=== PATIENT | male | born 1940 | race Caucasian/White ===

== ENCOUNTER 2019-06-18 07:34 | Inpatient (IN) | payer OTHER ==
--- NOTE | 2019-06-18 08:34 | PDOC ---
History of Present Illness - General Chief Complaint: Ingrown toenail Stated Complaint: TOE PAIN Time Seen by Provider: 06/18/19 08:10 History Source: Patient Exam Limitations: No Limitations Past History - Travel Traveled outside of the country in the last 30 days: No Close contact w/someone who was outside of country & ill: No - Past Medical History Allergies/Adverse Reactions: Allergies Allergy/AdvReac Type Severity Reaction Status Date / Time ciprofloxacin [From Cipro] Allergy Mild Vomiting Verified 06/18/19 08:17 ciprofloxacin HCl Allergy Mild Vomiting Verified 06/18/19 08:17 [From Cipro] Home Medications: Ambulatory Orders Aspirin [ASA -] 81 mg PO DAILY #0 tab.chew 06/02/13 Atorvastatin Calcium 20 mg PO DAILY 06/18/19 Cephalexin [Keflex] 500 mg PO TID 06/18/19 Lisinopril 10 mg PO DAILY 06/18/19 Anemia: No Asthma: No Cancer: No Cardiac Disorders: No CVA: No COPD: No CHF: No Dementia: No Diabetes: No GI Disorders: No Disorders: No HTN: Yes Hypercholesterolemia: Yes Liver Disease: No Seizures: No Thyroid Disease: No - Surgical History Abdominal Surgery: No Appendectomy: No Cardiac Surgery: Yes (CORONARY BYPASS) Cholecystectomy: No Lung Surgery: No Neurologic Surgery: No Orthopedic Surgery: No - Psycho Social/Smoking Cessation Hx Smoking Status: Yes Smoking History: Never smoked Have you smoked in the past 12 months: No Number of Cigarettes Smoked Daily: 7 'Breaking Loose' booklet given: 07/09/12 Hx Alcohol Use: Yes (WINE ON OCCASSION) Drug/Substance Use Hx: No Substance Use Type: Alcohol Hx Substance Use Treatment: No Review of Systems - Review of Systems Able to Perform ROS?: Yes Comments:: 06/18/19 08:34 CONSTITUTIONAL: Absent: fever, chills, diaphoresis, generalized weakness, malaise, loss of appetite HEENT: Absent: rhinorrhea, nasal congestion, throat pain, throat swelling, difficulty swallowing, mouth swelling, ear pain, eye pain, visual Changes CARDIOVASCULAR: Absent: chest pain, loss of consciousness, palpitations, irregular heart rate, peripheral edema RESPIRATORY: Absent: cough, shortness of breath, dyspnea with exertion, orthopnea, wheezing, stridor, hemoptysis GASTROINTESTINAL: Absent: abdominal pain, abdominal distension, nausea, vomiting, diarrhea, constipation, melena, hematochezia GENITOURINARY: Absent: dysuria, frequency, urgency, hesitancy, hematuria, flank pain, genital pain MUSCULOSKELETAL: Absent: myalgia, arthralgia, joint swelling SKIN: Present: L second toe infection Absent: rash, itching, pallor HEMATOLOGIC/IMMUNOLOGIC: Absent: easy bleeding, easy bruising, lymphadenopathy, frequent infections ENDOCRINE: Absent: unexplained weight gain, unexplained weight loss, heat intolerance, cold intolerance NEUROLOGIC: Absent: headache, focal weakness or paresthesias, dizziness, unsteady gait, seizure, mental status changes, bladder or bowel incontinence PSYCHIATRIC: Absent: anxiety, depression, suicidal or homicidal ideation, hallucinations. Is the patient limited Czech proficient: No *Physical Exam - Vital Signs Last Vital Signs Temp Pulse Resp BP Pulse Ox 71 18 163/92 99 06/18/19 07:37 06/18/19 07:37 06/18/19 07:37 06/18/19 07:37 - Physical Exam Comments: 06/18/19 08:35 GENERAL: Well developed, well nourished. Awake and alert. No acute distress. HEENT: Normocephalic, atraumatic. PERRLA, EOMI. No conjunctival pallor. Sclera are non- icteric. Moist mucous membranes. Oropharynx is clear. NECK: Supple. Full ROM. No JVD. Carotid pulses 2+ and symmetric, without bruits. No thyromegaly. No lymphadenopathy. CARDIOVASCULAR: Regular rate and rhythm. No murmurs, rubs, or gallops. Distal pulses are 2+ and symmetric. PULMONARY: No evidence of respiratory distress. Lungs clear to auscultation bilaterally. No wheezing, rales or rhonchi. ABDOMINAL: Soft. Non-tender. Non-distended. No rebound or guarding. No organomegaly. Normoactive bowel sounds. MUSCULOSKELETAL Normal range of motion at all joints. No bony deformities or tenderness. No CVA tenderness. EXTREMITIES: L second toe is warm and erythematous with streaking up the L foot. Purulent drainage noted between the 2nd and 3rd toe associated with a pressure ulcer. No cyanosis. No clubbing. No edema. No calf tenderness. SKIN: onychomycosis noted to all of the toenails on the left foot. Fungal discharge noted between toes. Warm and dry. Normal capillary refill. No rashes. No jaundice. NEUROLOGICAL: Alert, awake, appropriate. Cranial nerves 2-12 intact. No deficits to light touch and temperature in face, upper extremities and lower extremities. No motor deficits in the in face, upper extremities and lower extremities. Normoreflexic in the upper and lower extremities. Normal speech. Toes are down- going bilaterally. Gait is normal without ataxia. PSYCHIATRIC: Cooperative. Good eye contact. Appropriate mood and affect. Medical Decision Making - Medical Decision Making 06/18/19 08:45 the patient is a 78-year-old male with past medical history of hypertension, hyperlipidemia, presents to the ER today for a toe infection to the left second toe. He states that the infection most likely started 2 weeks ago after getting his nails trimmed. He states that the left second toenail got trimmed to far and it started to bleed. One week ago he went to [facility] and he was diagnosed with a cellulitis of the toe. He was placed on Keflex. He states since then the toe has gotten worse and he notices the top of the foot is red. Denies fevers, chills, difficulty breathing, shortness of breath, nausea, vomiting, diarrhea and urinary symptoms. Patient is an every day smoker. A/P: Left second toe infection On exam the left second toe is erythematous with purulent drainage and a pressure ulcer noted between the second and third toe on the left. There is streaking of erythema up the left foot. Labs, Cultures ordered. IV Vancomycin and zosyn ordered Patient fails outpatient antibiotics; will need admission for wound care and IV antibiotics. Patient upgraded to the main ER. CHARAN Nixon and charge nurse Parker made aware Discharge - Discharge Information Problems reviewed: Yes Clinical Impression/Diagnosis: Onychomycosis, Toe infection Cellulitis Qualifiers: Site of cellulitis: extremity Site of cellulitis of extremity: lower extremity Laterality: left Qualified Code(s): L03.116 - Cellulitis of left lower limb Condition: Stable - Follow up/Referral Referrals: Bird Phillip [Primary Care Provider] - - Patient Discharge Instructions - Post Discharge Activity
[2019-06-18] MEDS ORDERED: VANCOMYCIN 1,000 MG in DEXTROSE 5%-WATER - 250 ML IVPB ONE (08:37)
[2019-06-18] MEDS ORDERED: PIPERACILLIN/TAZOB 3.375 GM 3.375 GM in DEXTROSE 5%-WATER - 50 ML IVPB ONE (08:37)
[2019-06-18] MEDS ORDERED: PIPERACILLIN/TAZOB 3.375 GM 3.375 GM/50 ML BAG IVPB ONE (08:44)
--- NOTE | 2019-06-18 08:53 | PDOC ---
*Physical Exam - Vital Signs Last Vital Signs Temp Pulse Resp BP Pulse Ox 97.7 F 71 18 163/92 99 06/18/19 08:37 06/18/19 07:37 06/18/19 07:37 06/18/19 07:37 06/18/19 07:37 - Physical Exam General Appearance: Yes: Nourished, Appropriately Dressed. No: Apparent Distress HEENT: negative: Normal ENT Inspection Neck: positive: Supple Respiratory/Chest: positive: Lungs Clear, Normal Breath Sounds. negative: Chest Tender, Respiratory Distress, Accessory Muscle Use Cardiovascular: positive: Regular Rhythm, Regular Rate Gastrointestinal/Abdominal: positive: Normal Bowel Sounds, Flat. negative: Tender Musculoskeletal: positive: Normal Inspection Extremity: positive: Normal Capillary Refill, Normal Range of Motion, Erythema ( left whole toes with steaking up lateral side of left foot), Other (yellow discolorations of toenails of left foot). negative: Tender Integumentary: positive: Warm, Erythema (left 1st-5th toes erythema) Neurologic: positive: Fully Oriented, Alert, Normal Response, Motor Strength 5/5 ED Treatment Course - LABORATORY CBC & Chemistry Diagram: 06/18/19 08:58 06/18/19 08:39 Medical Decision Making - Medical Decision Making 06/18/19 08:53 I assumes care of this 78yo M with h/o HTN and ingrown toenail to 1st and 2nd left toes complicated by infected toes and on a week course of Keflex Abx with worsening symptoms. Patient being follow-up by podiatry for 2 weeks now who has been treated patient with outpatient PO abx but patient present today due to redness getting worse instead of getting better with redness spreading to all toes with skin discoloration and discoloration of toenails.. Denies fever, chills, weakness. Denies h/o diabetes. Patient had sepsis work-up done in [facility] and transferred for IV Abx. CBC, CMP labs wnl. blood CX and wound Cx sent. Pt started on Iv Abx on Vanco and Zosyn. micoblog sent to medicine for admission. 06/18/19 10:57 Patient seen by medicine team and admitted for IV Abx. admission EKG done Discharge - Discharge Information Problems reviewed: Yes Clinical Impression/Diagnosis: Onychomycosis, Toe infection Cellulitis Qualifiers: Site of cellulitis: extremity Site of cellulitis of extremity: lower extremity Laterality: left Qualified Code(s): L03.116 - Cellulitis of left lower limb Condition: Stable - Admission Yes - Follow up/Referral - Patient Discharge Instructions - Post Discharge Activity
[2019-06-18 09:10] LABS: EOS % 1.5 % (0-4.5); HEMOGLOBIN 16.3 GM/dL (11.7-16.9); LYMPH % 18.2 % (8-40); MCH 32.4 pg (25.7-33.7); MCHC 34.6 g/dl (32.0-35.9); MEAN CELL VOLUME 93.8 fl (80-96); MEAN PLT VOLUME 8.8 fl (7.5-11.1); MONO % 8.6 % (3.8-10.2); NEUT % 70.7 % (42.8-82.8); PLATELET COUNT 168 K/MM3 (134-434); RBC 5.01 M/mm3 (4.00-5.60); RDW 14.3 % (11.9-15.9); WHITE BLOOD COUNT 5.5 K/mm3 (4.0-10.0)
[2019-06-18 09:23] LABS: INR 1.04 (0.83-1.09); PROTHROMBIN TIME (PATIENT) 12.3 SEC (9.7-13.0)
[2019-06-18] MEDS ORDERED: VANCOMYCIN 1 GRAM (PRE-DOCKED) 0 MG/0 ML BAG IVPB ONE (09:25)
[2019-06-18 09:28] LABS: PH,URINE 5.5 (5.0-8.0); URINE APPEARANCE CLEAR; URINE BILIRUBIN NEGATIVE (NEGATIVE); URINE COLOR YELLOW; URINE GLUCOSE (UA) NEGATIVE (NEGATIVE); URINE KETONE NEGATIVE (NEGATIVE); URINE LEUK ESTERASE NEGATIVE (NEGATIVE); URINE NITRITE NEGATIVE (NEGATIVE); URINE PROTEIN NEGATIVE (NEGATIVE); URINE UROBILINOGEN 0.2 mg/dL (0.2-1.0)
[2019-06-18] MEDS ORDERED: VANCOMYCIN 1 GRAM (PRE-DOCKED) 1,000 MG/250 ML BAG IVPB ONE (09:29)
[2019-06-18 09:36] LABS: BILIRUBIN,TOTAL 0.6 mg/dL (0.2-1); BLOOD UREA NITROGEN 22.7 mg/dL (7-18); CALCIUM 8.9 mg/dL (8.5-10.1); CREATININE 0.9 mg/dL (0.55-1.3); POTASSIUM 4.6 mmol/L (3.5-5.1); TOT PROT 7.4 g/dl (6.4-8.2)
[2019-06-18] MEDS ORDERED: VANCOMYCIN 1 GRAM (PRE-DOCKED) 1,000 MG/250 ML BAG IVPB SCH ×2 (11:30→22:00)
--- NOTE | 2019-06-18 11:42 | HP ---
CHIEF COMPLAINT: LLE toe pain PCP: Dr. Bowers HISTORY OF PRESENT ILLNESS: Pt. is a 78 y.o. M w/ PMHx. of PVD( s/p multiple ballooplasties in b/l popliteal artery and iliac arteries), HTN, Prostate Ca(s/ p radiation treatment), COPD?, HLD, Axillary Abcess (MRSA) and OM (MRSA) presenting after failed outpatient management of left second and third toe cellulitis. Pt. saw his Syrup Blender (Dr. Wolfe) 2 weeks ago to have his nails clipped and states that it was clipped too low. Pt. went to [facility] urgent care 1 week later because of ongoing toe pain and was prescribed Kefflex 500mg TID. Pt. states that the symptoms initally stared to resolve but that on Wednesday the symptoms of pain and redness returned and started to creep back up his toes and to the neighboring toes. Pt. denies ever having fever or chills throughout the entire series of events. Pt. denies any numbness or tingling in his extremities. Pt. denies any worsening weakness in his extremities but does endorse that he walks with a limp for many years now. Pt. denies any chest pain , shortness of breath, or changes in bowel or urinary habits. ER course was notable for: (1)Foot X-Ray, CBC, CMP, EKG (2)BCx., UCx., WCx. (3) Vancomycin and Zosyn Recent Travel: No PAST MEDICAL HISTORY: As Above PAST SURGICAL HISTORY: All surgeries done at [facility] except L. Fem-Pop Bypass. As above AND vein stripping. Social History: Smokin/2 PPD Alcohol: 1 glass of wine with dinner, except when taking Abx. Drugs: Denies Allergies ciprofloxacin [From Cipro] Allergy (Mild, Verified 06/18/19 08:17) Vomiting ciprofloxacin HCl [From Cipro] Allergy (Mild, Verified 06/18/19 08:17) Vomiting HOME MEDICATIONS: Home Medications Medication Instructions Recorded Aspirin [ASA -] 81 mg PO DAILY #0 tab.chew 06/02/13 Atorvastatin Calcium 20 mg PO DAILY 06/18/19 Cephalexin [Keflex] 500 mg PO TID 06/18/19 Lisinopril 10 mg PO DAILY 06/18/19 REVIEW OF SYSTEMS As Above PHYSICAL EXAMINATION Vital Signs - 24 hr 06/18/19 06/18/19 06/18/19 07:37 08:37 09:18 Temperature 97.7 F Pulse Rate 71 Pulse Rate [ Apical] Respiratory 18 Rate Blood Pressure 163/92 Blood Pressure [Left Arm] O2 Sat by Pulse 99 95 Oximetry (%) 06/18/19 10:55 Temperature 97.3 F L Pulse Rate Pulse Rate [ 64 Apical] Respiratory 16 Rate Blood Pressure Blood Pressure 175/74 H [Left Arm] O2 Sat by Pulse 97 Oximetry (%) GENERAL: Awake, alert, and fully oriented, in no acute distress. HEAD: Normal with no signs of trauma. EYES: extraocular movements intact, sclera anicteric, conjunctiva clear. EARS, NOSE, THROAT: Ears normal, nares patent, oropharynx clear without exudates. Moist mucous membranes. NECK: Normal range of motion, supple without lymphadenopathy, or JVD LUNGS: Breath sounds equal, clear to auscultation bilaterally. No wheezes, and no crackles. No accessory muscle use. HEART: Regular rate and rhythm, normal S1 and S2 without murmur ABDOMEN: Soft, nontender, not distended, normoactive bowel sounds, no guarding, no rebound, no masses. MUSCULOSKELETAL: Normal range of motion at all joints. Left second toe partial amputation UPPER EXTREMITIES: 2+ pulses, warm, well-perfused. No cyanosis. No clubbing. No peripheral edema. LOWER EXTREMITIES: 1+ pulses, warm, well-perfused. No calf tenderness. No peripheral edema. Left second and third toe creeping erythema. Fissure in the left second toe. Bunions present on b/l toes most prominent on b/l halluces NEUROLOGICAL: Cranial nerves II-XII grossly intact. Normal speech. Gait not assessed. PSYCHIATRIC: Cooperative. Good eye contact. Appropriate mood and affect. SKIN: Warm, dry, normal turgor Laboratory Results - last 24 hr 06/18/19 06/18/19 06/18/19 08:39 08:58 08:58 WBC 5.5 RBC 5.01 Hgb 16.3 Hct 47.0 D MCV 93.8 MCH 32.4 MCHC 34.6 RDW 14.3 Plt Count 168 D MPV 8.8 Absolute Neuts (auto) 3.9 Neutrophils % 70.7 Lymphocytes % 18.2 D Monocytes % 8.6 Eosinophils % 1.5 D Basophils % 1.0 Nucleated RBC % 0 PT with INR 12.30 INR 1.04 Sodium 141 Potassium 4.6 Chloride 106 Carbon Dioxide 32 Anion Gap 3 L BUN 22.7 H Creatinine 0.9 Est GFR (CKD-EPI)AfAm 94.48 Est GFR (CKD-EPI)NonAf 81.52 Random Glucose 101 Calcium 8.9 Total Bilirubin 0.6 AST 18 ALT 18 Alkaline Phosphatase 96 Total Protein 7.4 Albumin 4.0 Urine Color Urine Appearance Urine pH Ur Specific [place] Urine Protein Urine Glucose (UA) Urine Ketones Urine Blood Urine Nitrite Urine Bilirubin Urine Urobilinogen Ur Leukocyte Esterase 06/18/19 09:15 WBC RBC Hgb Hct MCV MCH MCHC RDW Plt Count MPV Absolute Neuts (auto) Neutrophils % Lymphocytes % Monocytes % Eosinophils % Basophils % Nucleated RBC % PT with INR INR Sodium Potassium Chloride Carbon Dioxide Anion Gap BUN Creatinine Est GFR (CKD-EPI)AfAm Est GFR (CKD-EPI)NonAf Random Glucose Calcium Total Bilirubin AST ALT Alkaline Phosphatase Total Protein Albumin Urine Color Yellow Urine Appearance Clear Urine pH 5.5 Ur Specific [place] 1.010 Urine Protein Negative Urine Glucose (UA) Negative Urine Ketones Negative Urine Blood Negative Urine Nitrite Negative Urine Bilirubin Negative Urine Urobilinogen 0.2 Ur Leukocyte Esterase Negative ASSESSMENT/PLAN: Pt. is a 78 y.o. M w/ PMHx. of PVD( s/p multiple ballooplasties in b/l popliteal artery and iliac arteries), HTN, Prostate Ca(s/p radiation treatment) , COPD?, HLD, Axillary Abcess (MRSA) and OM (MRSA) presenting after failed outpatient management of left second and third toe cellulitis. #Cellulitis of L. second and third toes r/o OM ESR: 7, suggesting against OM f/u MRI of left foot, Pt. denies any other surgeries or presence of any metallic hardware in body ID Consult (Dr. Galaviz) appreciated Hx. 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 Rodriguez) #HTN c/w Lisinopril #HLD c/w Lipitor 20mg #DVT Ppx. Hep SQ BID #FEN no IVF, encourage PO intake monitor electrolytes and replete as needed Na restricted Diet Visit type - Emergency Visit Emergency Visit: Yes ED Registration Date: 06/18/19 Care time: The patient presented to the Emergency Department on the above date and was hospitalized for further evaluation of their emergent condition. - New Patient This patient is new to me today: Yes Date on this admission: 06/18/19 - Critical Care Critical Care patient: No ATTENDING PHYSICIAN STATEMENT I saw and evaluated the patient. I reviewed the resident's note and discussed the case with the resident. I agree with the resident's findings and plan as documented. SUBJECTIVE: OBJECTIVE: ASSESSMENT AND PLAN:
[2019-06-18] MEDS ORDERED: ACETAMINOPHEN 325 MG TABLET (FP) PO PRN (11:57)
[2019-06-18] MEDS: ASPIRIN 81 MG CHEWABLE TABLETS PO SCH (13:01)
[2019-06-18] MEDS: LISINOPRIL 10 MG TABLET (FP) PO SCH (13:01)
[2019-06-18] MEDS: HEPARIN NA (PORCINE) 5,000 UNITS/ML 1ML VIAL SQ SCH ×2 (13:01→22:26)
--- NOTE | 2019-06-18 13:19 | PN ---
Progress Note (short form) - Note Progress Note: ID CONSULT DICTATED CELLULITIS L FOOT HX MRSA PERIPH VASCULAR DISEASE AWAIT C/S EMPIRIC VANCOMYCIN/ CEFTRIAXONE
[2019-06-18] MEDS ORDERED: DEXTROSE 5%-WATER 100 ML IVPB ONE (14:16)
[2019-06-18] MEDS: CEFTRIAXONE 2 GM in DEXTROSE 5%-WATER 100 ML IVPB SCH (14:32)
[2019-06-18 15:36] VITALS: BMI 22.2
--- NOTE | 2019-06-18 16:45 | EKG ---
Test Reason : Blood Pressure : / mmHG Vent. Rate : 067 BPM Atrial Rate : 067 BPM P-R Int : 208 ms QRS Dur : 086 ms QT Int : 416 ms P-R-T Axes : 087 060 073 degrees QTc Int : 439 ms NORMAL SINUS RHYTHM WITH SINUS ARRHYTHMIA MINIMAL VOLTAGE CRITERIA FOR LVH, MAY BE NORMAL VARIANT BORDERLINE ECG WHEN COMPARED WITH ECG OF 28-MAY-2013 13:23, NO SIGNIFICANT CHANGE WAS FOUND Confirmed by SHAHAB ALBA, KELLEY ([id number]) on 06/18/2019 4:44:59 PM Referred By: Confirmed By:KELLEY GUDINO MD
--- NOTE | 2019-06-18 17:15 | PN ---
Teaching Attending Note Name of Resident: José Franz ATTENDING PHYSICIAN STATEMENT I saw and evaluated the patient. I reviewed the resident's note and discussed the case with the resident. I agree with the resident's findings and plan as documented. SUBJECTIVE: Patient is a 78yo male with PMHx. of PAD( s/p multiple balloonplasties in b/l popliteal artery and iliac arteries), HTN, Prostate Ca(s/p radiation treatment) , COPD, HLD, Axillary Abcess (MRSA) and OM (MRSA) presented to ED post failed outpatient antibx (Keflex 500mg tid) treatment of left second and third toe cellulitis. OBJECTIVE: Vital Signs Temperature 98.2 F 06/18/19 14:00 Pulse Rate 74 06/18/19 14:00 Respiratory Rate 18 06/18/19 14:00 Blood Pressure 151/76 06/18/19 14:00 O2 Sat by Pulse Oximetry (%) 97 06/18/19 10:55 GENERAL: The patient is awake, alert, and fully oriented, in no acute distress. HEAD: Normal with no signs of trauma. EYES: PERRL, extraocular movements intact, sclera anicteric, conjunctiva clear. ENT: Ears normal, oropharynx clear without exudates, moist mucous membranes. NECK: Trachea midline, full range of motion, supple. LUNGS: Breath sounds equal, clear to auscultation bilaterally, no wheezes, no crackles, no accessory muscle use. HEART: Regular rate and rhythm, S1, S2 without murmur, rub or gallop. ABDOMEN: Soft, nontender, nondistended, normoactive bowel sounds, no guarding, no rebound, no hepatosplenomegaly, no masses. EXTREMITIES: 2+ pulses, warm, well-perfused, no edema. Left second and third toe creeping erythema. Fissure in the left second toe. NEUROLOGICAL: Cranial nerves II through XII grossly intact. Normal speech, gait not observed. PSYCH: Normal mood, normal affect. SKIN: Warm, dry, normal turgor, no rashes or lesions noted CBCD WBC 5.5 K/mm3 (4.0-10.0) 06/18/19 08:58 RBC 5.01 M/mm3 (4.00-5.60) 06/18/19 08:58 Hgb 16.3 GM/dL (11.7-16.9) 06/18/19 08:58 Hct 47.0 % (35.4-49) D 06/18/19 08:58 MCV 93.8 fl (80-96) 06/18/19 08:58 MCHC 34.6 g/dl (32.0-35.9) 06/18/19 08:58 RDW 14.3 % (11.9-15.9) 06/18/19 08:58 Plt Count 168 K/MM3 (134-434) D 06/18/19 08:58 MPV 8.8 fl (7.5-11.1) 06/18/19 08:58 CMP Sodium 141 mmol/L (136-145) 06/18/19 08:39 Potassium 4.6 mmol/L (3.5-5.1) 06/18/19 08:39 Chloride 106 mmol/L (98-107) 06/18/19 08:39 Carbon Dioxide 32 mmol/L (21-32) 06/18/19 08:39 Anion Gap 3 MMOL/L (8-16) L 06/18/19 08:39 BUN 22.7 mg/dL (7-18) H 06/18/19 08:39 Creatinine 0.9 mg/dL (0.55-1.3) 06/18/19 08:39 Random Glucose 101 mg/dL (74-106) 06/18/19 08:39 Calcium 8.9 mg/dL (8.5-10.1) 06/18/19 08:39 Total Bilirubin 0.6 mg/dL (0.2-1) 06/18/19 08:39 AST 18 U/L (15-37) 06/18/19 08:39 ALT 18 U/L (13-61) 06/18/19 08:39 Alkaline Phosphatase 96 U/L (45-117) 06/18/19 08:39 Total Protein 7.4 g/dl (6.4-8.2) 06/18/19 08:39 Albumin 4.0 g/dl (3.4-5.0) 06/18/19 08:39 Current Medications Generic Name Dose Route Start Last Admin Trade Name Freq PRN Reason Stop Dose Admin Acetaminophen 650 mg 06/18/19 11:57 Tylenol - PO Q4H PRN PAIN OR FEVER Aspirin 81 mg 06/18/19 12:15 06/18/19 13:01 Asa - PO 81 mg DAILY BRODY Administration Atorvastatin Calcium 20 mg 06/18/19 22:00 Lipitor - PO HS BRODY Heparin Sodium (Porcine) 5,000 unit 06/18/19 12:00 06/18/19 13:01 Heparin - SQ 5,000 unit BID BRODY Administration Vancomycin HCl 1,000 mg in 250 mls @ 166.667 mls/hr 06/18/19 22:00 Vancomycin (Pre-Docked) IVPB BID BRODY Protocol Ceftriaxone Sodium 2 gm/ 100 mls @ 200 mls/hr 06/18/19 13:30 06/18/19 14:32 Dextrose IVPB 200 mls/hr DAILY BRODY Administration Protocol Lisinopril 10 mg 06/18/19 12:15 06/18/19 13:01 Prinivil PO 10 mg DAILY BRODY Administration Home Medications Medication Instructions Recorded Aspirin [ASA -] 81 mg PO DAILY #0 tab.chew 06/02/13 Atorvastatin Calcium 20 mg PO DAILY 06/18/19 Lisinopril 10 mg PO DAILY 06/18/19 Foot XRay:no free air noted in soft tissue ASSESSMENT AND PLAN: Patient is a 78 y.o. M w/ PMHx. of PVD( s/p multiple ballooplasties in b/l popliteal artery and iliac arteries), HTN, Prostate Ca(s/p radiation treatment) , COPD?, HLD, Axillary Abcess (MRSA) and OM (MRSA) presenting after failed outpatient management of left second and third toe cellulitis. #Acute cellulitis of Left second and third toes r/o OM, ID consulted, IV antibiotic van/mary ann, mri is pending with PMHx of MRSA bacteremia from axillary abcess and MRSA OM of L. second toe ( s/p partial amputation) Vascular Consult appreciated (Dr. Rodriguez) #HTN: continue isinopril #HLD: continue home Lipitor 20mg #DVT Ppx: Hep SQ BID
--- NOTE | 2019-06-18 17:36 | CONS ---
DATE OF CONSULTATION: 06/18/2019 The patient is a 78-year-old male with a history of peripheral vascular disease, history of MRSA soft tissue infection and osteomyelitis, now evaluated for cellulitis of the left foot. The patient is a non-diabetic. He reports approximately 2 weeks ago having his toenails clipped at his contract agent's office. He developed cellulitis at the site. The patient was seen in the urgent care center and was prescribed Keflex. Despite the antibiotic therapy, it became progressively worse. He developed increased pain, swelling, and erythema of the left 2nd and 3rd toes. He did note some drainage. He denies any associated fever or chills. Patient has had a history of MRSA soft tissue infections in the past as well as bacteremia. Past medical history positive for peripheral vascular disease, hypertension, prostate cancer, COPD, hyperlipidemia, history of osteomyelitis, MRSA, and axillary abscess MRSA. Patient had MRSA bacteremia in June of 2012. PAST SURGICAL HISTORY: Status post aortobifemoral bypass. Allergies to ciprofloxacin (nausea and vomiting). Medications include aspirin, Lipitor, lisinopril, vancomycin, Zosyn. SOCIAL HISTORY: Former heavy smoker, positive EtOH. SYSTEMS REVIEW: Neurologic: No loss of consciousness, seizure activity, or focal weakness. Cardiac: Negative chest pain or palpitations. Respiratory: Negative cough or sputum production. Gastrointestinal: Negative vomiting or diarrhea. Genitourinary: Negative for urinary tract infection. LABORATORY DATA: White count 5.5, hematocrit 47.0, platelet count 168. Creatinine 0.9, liver enzymes normal. Urinalysis negative. Leukocyte esterase. Blood and wound cultures are pending. X-ray of the left foot: DJD, left 2nd toe deformity, and partial amputation. PHYSICAL EXAMINATION: General: He is awake and alert, he is not acutely toxic appearing. Vital Signs: Temperature 97.3. Blood pressure 175/74. Pulse 64, regular. Respiration 20 per minute. Eyes: Sclerae anicteric. Heart Sounds: S1, S2. Lungs: Clear. Abdomen: Soft. Healed surgical scars. Extremities: Examination of the left foot, there is partial amputation of the left 2nd toe with diffuse erythema and swelling of the left 2nd toe. There are dry ulcerations present on the toes. There is also swelling and erythema of the left 3rd toe. No purulent drainage is noted. IMPRESSION: 1. Cellulitis of the left 2nd and 3rd toes. 2. History of methicillin-resistant Staphylococcus aureus. 3. Peripheral vascular disease, status post vascular bypass. Await cultures. Empiric antibiotic coverage with vancomycin and ceftriaxone. Podiatry evaluation. Local wound care. Thank you for the kind referral. KERRI KO M.D. [id number]
[2019-06-18] MEDS ORDERED: PIPERACILLIN/TAZOB 3.375 GM 3.375 GM in DEXTROSE 5%-WATER - 50 ML IVPB SCH (18:00)
[2019-06-18] MEDS: ATORVASTATIN CA 20 MG TABLET (FP) PO SCH (22:26)
[2019-06-18] MEDS: VANCOMYCIN 1 GRAM (PRE-DOCKED) 1,000 MG/250 ML BAG IVPB SCH (22:27)
[2019-06-19 07:54] LABS: BASO % 0.7 % (0-2.0); EOS % 3.1 % (0-4.5); HEMOGLOBIN 15.6 GM/dL (11.7-16.9); LYMPH % 21.5 % (8-40); MCH 32.6 pg (25.7-33.7); MCHC 34.6 g/dl (32.0-35.9); MEAN CELL VOLUME 94.2 fl (80-96); MONO % 8.1 % (3.8-10.2); NEUT % 66.6 % (42.8-82.8); PLATELET COUNT 143 K/MM3 (134-434); RBC 4.78 M/mm3 (4.00-5.60); RDW 13.9 % (11.9-15.9); WHITE BLOOD COUNT 4.7 K/mm3 (4.0-10.0)
[2019-06-19 08:12] LABS: BLOOD UREA NITROGEN 23.6 mg/dL (7-18); CALCIUM 8.6 mg/dL (8.5-10.1); CREATININE 0.9 mg/dL (0.55-1.3); MAGNESIUM 2.1 mg/dL (1.8-2.4); PHOSPHOROUS 2.7 mg/dL (2.5-4.9); POTASSIUM 4.1 mmol/L (3.5-5.1)
[2019-06-19 08:13] LABS: INR 1.06 (0.83-1.09); PROTHROMBIN TIME (PATIENT) 12.5 SEC (9.7-13.0)
[2019-06-19] MEDS ORDERED: DEXTROSE 5%-WATER 100 ML IVPB ONE (09:42)
[2019-06-19] MEDS: ASPIRIN 81 MG CHEWABLE TABLETS PO SCH (10:13)
[2019-06-19] MEDS: LISINOPRIL 10 MG TABLET (FP) PO SCH (10:13)
[2019-06-19] MEDS: HEPARIN NA (PORCINE) 5,000 UNITS/ML 1ML VIAL SQ SCH ×2 (10:13→21:31)
[2019-06-19] MEDS: CEFTRIAXONE 2 GM in DEXTROSE 5%-WATER 100 ML IVPB SCH (10:14)
[2019-06-19] MEDS: VANCOMYCIN 1 GRAM (PRE-DOCKED) 1,000 MG/250 ML BAG IVPB SCH ×2 (11:13→21:31)
--- NOTE | 2019-06-19 12:26 | PN ---
Progress Note, Physician History of Present Illness: AWAKE, ALERT NO C/O FOOT PAIN TOLERATING ANTIBIOTICS - Current Medication List Current Medications: Active Medications Acetaminophen (Tylenol -) 650 mg PO Q4H PRN PRN Reason: PAIN OR FEVER Aspirin (Asa -) 81 mg PO DAILY [facility] Last Admin: 06/19/19 10:13 Dose: 81 mg Atorvastatin Calcium (Lipitor -) 20 mg PO HS [facility] Last Admin: 06/18/19 22:26 Dose: 20 mg Heparin Sodium (Porcine) (Heparin -) 5,000 unit SQ BID [facility] Last Admin: 06/19/19 10:13 Dose: 5,000 unit Vancomycin HCl (Vancomycin (Pre-Docked)) 1,000 mg in 250 mls @ 166.667 mls/hr IVPB BID [facility]; Protocol Last Admin: 06/19/19 11:13 Dose: 166.667 mls/hr Ceftriaxone Sodium 2 gm/ (Dextrose) 100 mls @ 200 mls/hr IVPB DAILY [facility]; Protocol Last Admin: 06/19/19 10:14 Dose: 200 mls/hr Lisinopril (Prinivil) 10 mg PO DAILY [facility] Last Admin: 06/19/19 10:13 Dose: 10 mg - Objective Vital Signs: Vital Signs Temperature 98.4 F 06/19/19 09:00 Pulse Rate 66 06/19/19 09:00 Respiratory Rate 20 06/19/19 09:00 Blood Pressure 147/74 06/19/19 09:00 O2 Sat by Pulse Oximetry (%) 98 06/19/19 09:00 Constitutional: Yes: No Distress Cardiovascular: Yes: Regular Rate and Rhythm, S1, S2 Respiratory: Yes: CTA Bilaterally Gastrointestinal: Yes: Normal Bowel Sounds, Soft. No: Tenderness Extremities: Yes: Other (DECREASED ERYTHEMA L 2ND/ 3RD TOES) Labs: CBC, BMP 06/19/19 06:45 06/19/19 06:00 INR, PTT INR 1.06 (0.83-1.09) 06/19/19 06:45 Assessment/Plan CELLULITIS L 2ND/ 3RD TOES PERIPHERAL VASCULAR DISEASE CONTINUE EMPIRIC VANCOMYCIN/ CEFTRIAXONE
--- NOTE | 2019-06-19 14:43 | CONSULT ---
<Zoila Ward - Last Filed: 06/19/19 15:14> - Consultation REQUESTING PROVIDER: CONSULT REQUEST: We have been asked to surgically evaluate this patient for left toe ulcer. PCP:Malorie Anguiano HISTORY OF PRESENT ILLNESS: Pt. is a 78 y.o. M w/ PMHx. of PVD( s/p multiple ballooplasties in b/l popliteal artery and iliac arteriesn and Left femoro- popliteal bypass in 2013, HTN, Prostate Ca(s/p radiation treatment), HLD, Axillary Abcess (MRSA) and OM (MRSA) presenting after failed outpatient management of left second and third toe wounds. Pt. saw his [employer]ician (Dr. Wolfe) 2 weeks ago to have his nails clipped and states that it was clipped too low. Pt. went to [facility] urgent care 1 week later because of ongoing toe pain and was prescribed Kefflex 500mg TID. He states that the symptoms initially stared to resolve but that on Wednesday the symptoms of pain and redness returned over the 2nd, 3rd and 4th toes. Pt denies ever having fever or chills throughout the entire series of events. Pt. denies any numbness or tingling in his extremities. Pt. denies any worsening weakness in his extremities but does endorse that he walks with a limp for many years now. Pt. denies any chest pain, shortness of breath, or changes in bowel or urinary habits. Recent Travel: No PMHx Anemia: No Asthma: No Cancer: No Cardiac Disorders: No CVA: No COPD: No CHF: No Dementia: No Diabetes: No GI Disorders: No Disorders: No HTN: Yes Hypercholesterolemia: Yes Liver Disease: No Seizures: No Thyroid Disease: No - Surgical History Abdominal Surgery: No Appendectomy: No Cardiac Surgery: Yes (CORONARY BYPASS) Cholecystectomy: No Lung Surgery: No Neurologic Surgery: No Orthopedic Surgery: No - Psycho Social/Smoking Cessation Hx Smoking Status: Yes Smoking History: Never smoked Have you smoked in the past 12 months: yes Number of Cigarettes Smoked Daily: 10 'Breaking Loose' booklet given: 07/09/12 Hx Alcohol Use: Yes (WINE ON OCCASSION) Drug/Substance Use Hx: No Substance Use Type: Alcohol Hx Substance Use Treatment: No - Review of Systems Able to Perform ROS?: Yes Comments:: CONSTITUTIONAL: Absent: fever, chills, diaphoresis, generalized weakness, malaise, loss of appetite, + weight loss HEENT: Absent: rhinorrhea, nasal congestion, throat pain, visual Changes CARDIOVASCULAR: Absent: chest pain, loss of consciousness, palpitations, RESPIRATORY: Absent: cough, shortness of breath, dyspnea with exertion, GASTROINTESTINAL: Absent: abdominal pain, abdominal distension, nausea, vomiting, GENITOURINARY: Absent: dysuria, MUSCULOSKELETAL: Absent: myalgia, SKIN: Present: L second toe infection with chronic skin changes, Absent: rash, itching , pallor HEMATOLOGIC/IMMUNOLOGIC: Absent: easy bleeding, easy bruising, ENDOCRINE: Absent: unexplained weight gain, NEUROLOGIC: Absent: headache, focal weakness or paresthesias, dizziness, PSYCHIATRIC: Absent: anxiety, depression, suicidal or homicidal ideation, hallucinations. Allergy ciprofloxacin [From Cipro] Allergy (Mild, Verified 06/18/19 08:17) Vomiting HOME MEDICATIONS: Home Medications Medication Instructions Recorded Aspirin [ASA -] 81 mg PO DAILY #0 tab.chew 06/02/13 Atorvastatin Calcium 20 mg PO DAILY 06/18/19 Cephalexin [Keflex] 500 mg PO TID 06/18/19 Lisinopril 10 mg PO DAILY 06/18/19 Vital Signs Temp 98.4 F 06/19/19 09:00 Pulse 66 06/19/19 09:00 Resp 20 06/19/19 09:00 BP 147/74 06/19/19 09:00 Pulse Ox 98 06/19/19 09:00 Intake & Output 06/18/19 06/19/19 06/19/19 23:59 11:59 23:59 Intake Total 950 Balance 950 Weight 138 lb Intake: IVPB 350 Oral 600 Other: Voiding Method Toilet Toilet # Unmeasured Voids Void 1 1 Bowel Movement No No Height 5 ft 6 in Body Mass Index (BMI) 22.2 Weight Measurement Method Built in [facility] CBC, BMP 06/19/19 06:45 06/19/19 06:00 PHYSICAL EXAMINATION GENERAL: Awake, alert, and fully oriented, in no acute distress. HEAD: Normal with no signs of trauma. EYES: sclera anicteric, conjunctiva clear. LUNGS: Unlabored resp on RA, No auditory wheezes, No accessory muscle use. MUSCULOSKELETAL: Left second toe partial amputation UPPER EXTREMITIES: No peripheral edema. LOWER EXTREMITIES: left LE with no palpable or signal on doppler over DP and PT , warm, well-perfused. No calf tenderness. No peripheral edema. Left second shortened with wound/ fisure over dorsum of IP joint with fribrinous tissue, Chronic skin changes throughout 2nd, 3rd and 4th toes with tissue maceration between extending into 1st, 2nd and 3rd web spaces. no foul odor or active d/c. Right Foot without lesion or wounds. NEUROLOGICAL: Cranial nerves II-XII grossly intact. Normal speech. Gait not assessed. PSYCHIATRIC: Cooperative. Good eye contact. Appropriate mood and affect. SKIN: Warm, dry, normal turgor X-Ray Left foot: left 2nd toe deformity with partial amputation with major portion of proximal phalanx remaining. Problem List - Problems (1) Toe infection Assessment/Plan: 78yo with hx of PVD s/p left fem-pop bypass 2014 now with non-healing ulcer of left 2nd toe and no signal on bedside doppler over DP or PT. 1) Arterial duplex Left LE, please evaluate patency of graft 2) MRI to R/o Osteomylitis 3) IV abx per ID 4) Betadine soaked gauze between left toes. Kurlex. 5) offload pressure sensitive areas 6) OOB with assist- fall risk. Code(s): L08.9 - LOCAL INFECTION OF THE SKIN AND SUBCUTANEOUS TISSUE, UNSP (2) Peripheral vascular disease Code(s): I73.9 - PERIPHERAL VASCULAR DISEASE, UNSPECIFIED <Valdemar Rodriguez - Last Filed: 06/20/19 11:44> - Consultation REQUESTING PROVIDER: CONSULT REQUEST: We have been asked to surgically evaluate this patient for ( specify). PCP:Charley White HISTORY OF PRESENT ILLNESS: PMHx: PSHx: Home Medications Medication Instructions Recorded Aspirin [ASA -] 81 mg PO DAILY #0 tab.chew 06/02/13 Atorvastatin Calcium 20 mg PO DAILY 06/18/19 Lisinopril 10 mg PO DAILY 06/18/19 Allergies Allergy/AdvReac Type Severity Reaction Status Date / Time ciprofloxacin [From Cipro] Allergy Mild Vomiting Verified 06/18/19 08:17 ciprofloxacin HCl Allergy Mild Vomiting Verified 06/18/19 08:17 [From Cipro] REVIEW OF SYSTEMS: CONSTITUTIONAL: Absent: fever, chills, diaphoresis, generalized weakness, malaise, loss of appetite, weight change CARDIOVASCULAR: Absent: chest pain, syncope, palpitations, irregular heart rate, lightheadedness , peripheral edema RESPIRATORY: Absent: cough, shortness of breath, dyspnea with exertion, wheezing, stridor, hemoptysis GASTROINTESTINAL: Absent: abdominal pain, abdominal distension, nausea, vomiting, diarrhea, constipation, melena, hematochezia GENITOURINARY: Absent: dysuria, frequency, urgency, hesitancy, hematuria, flank pain, genital pain MUSCULOSKELETAL: Absent: myalgia, arthralgia, joint swelling, back pain, neck pain SKIN: Absent: rash, itching, pallor HEMATOLOGIC/IMMUNOLOGIC: Absent: easy bleeding, easy bruising, lymphadenopathy NEUROLOGIC: Absent: headache, focal weakness, paresthesias, dizziness, unsteady gait, seizure, mental status changes, bladder or bowel incontinence PSYCHIATRIC: Absent: anxiety, depression, suicidal or homicidal ideation, hallucinations. PHYSICAL EXAM: GENERAL: Awake, alert, and fully oriented, in no acute distress. HEAD: Normal with no signs of trauma. EYES: PERRL, sclera anicteric, conjunctiva clear. NECK: Normal ROM, supple without lymphadenopathy, JVD, or masses. LUNGS: Clear to auscultation bilat anteriorly. No wheezes, and no crackles. No accessory muscle use. HEART: Regular rate and rhythm. No murmurs ABDOMEN: Soft, nontender, not distended, normoactive bowel sounds, no guarding, no rebound, no masses. No organomegaly. MUSCULOSKELETAL: Normal ROM at all joints. No bony deformities or tenderness. No CVA tenderness. UPPER EXTREMITIES: 2+ pulses, warm, well-perfused. No cyanosis. Cap refill <2 seconds. No peripheral edema. LOWER EXTREMITIES: 2+ pulses, warm, well-perfused. No calf tenderness. No peripheral edema. NEUROLOGICAL: Normal speech, gait not observed. PSYCH: Cooperative. Good eye contact. Appropriate mood and affect. SKIN: Warm, dry, normal turgor, no rashes or lesions noted. Vital Signs Temperature 98 F 06/20/19 09:00 Pulse Rate 58 L 06/20/19 09:00 Respiratory Rate 20 06/20/19 09:00 Blood Pressure 159/79 06/20/19 09:00 O2 Sat by Pulse Oximetry (%) 96 06/20/19 09:00 Lab Results WBC 4.7 K/mm3 (4.0-10.0) 06/19/19 06:45 RBC 4.78 M/mm3 (4.00-5.60) 06/19/19 06:45 Hgb 15.6 GM/dL (11.7-16.9) 06/19/19 06:45 Hct 45.0 % (35.4-49) 06/19/19 06:45 MCV 94.2 fl (80-96) 06/19/19 06:45 MCHC 34.6 g/dl (32.0-35.9) 06/19/19 06:45 RDW 13.9 % (11.9-15.9) 06/19/19 06:45 Plt Count 143 K/MM3 (134-434) 06/19/19 06:45 Sodium 142 mmol/L (136-145) 06/19/19 06:00 Potassium 4.1 mmol/L (3.5-5.1) 06/19/19 06:00 Chloride 108 mmol/L (98-107) H 06/19/19 06:00 Carbon Dioxide 29 mmol/L (21-32) 06/19/19 06:00 Anion Gap 4 MMOL/L (8-16) L 06/19/19 06:00 BUN 23.6 mg/dL (7-18) H 06/19/19 06:00 Creatinine 0.9 mg/dL (0.55-1.3) 06/19/19 06:00 Random Glucose 100 mg/dL (74-106) 06/19/19 06:00 Calcium 8.6 mg/dL (8.5-10.1) 06/19/19 06:00 INR 1.06 (0.83-1.09) 06/19/19 06:45 Prior right fem-pop bypass in 2013 for foot ulcer. He has an aorto-bifemoral bypass for many years. States foot developed wound after toe nail clipping. Denies claudication symptoms. Foot is warm with wounds on toes. I suspect bypass has occluded in thigh. Will get Duplex to confirm and CTA if positive. Unclear when graft went down - may be difficult to salvage.
--- NOTE | 2019-06-19 16:38 | PN ---
Physical Exam: SUBJECTIVE: Patient seen and examined. Pt had no acute complaints. pt feels better. pain and redness still there but not as much. OBJECTIVE: Vital Signs Period Temp Pulse Resp BP Sys/Thayer Pulse Ox Last 24 Hr 97.8 F-98.4 F 66-86 20-20 146-147/65-74 98 GENERAL: The patient is awake, alert, and fully oriented, in no acute distress. HEAD: Normal with no signs of trauma. ENT: oropharynx clear without exudates, moist mucous membranes. LUNGS: Breath sounds equal, clear to auscultation bilaterally, no wheezes, no crackles, no accessory muscle use. HEART: Regular rate and rhythm, S1, S2 without murmur, rub or gallop. ABDOMEN: Soft, nontender, nondistended, normoactive bowel sounds, no guarding, no rebound, no hepatosplenomegaly, no masses. EXTREMITIES: 2+ pulses, warm, well-perfused, no edema.Left second shortened with wound/ fisure over dorsum of IP joint with fribrinous tissue, Chronic skin changes throughout 2nd, 3rd and 4th toes with tissue maceration between extending into 1st, 2nd and 3rd web spaces. no foul odor or active d/c. Right Foot without lesion or wounds. PSYCH: Normal mood, normal affect. Laboratory Results - last 24 hr 06/19/19 06/19/19 06/19/19 06:00 06:45 06:45 WBC 4.7 RBC 4.78 Hgb 15.6 Hct 45.0 MCV 94.2 MCH 32.6 MCHC 34.6 RDW 13.9 Plt Count 143 MPV 9.0 Absolute Neuts (auto) 3.1 Neutrophils % 66.6 Lymphocytes % 21.5 Monocytes % 8.1 Eosinophils % 3.1 D Basophils % 0.7 Nucleated RBC % 0 PT with INR 12.50 INR 1.06 Sodium 142 Potassium 4.1 Chloride 108 H Carbon Dioxide 29 Anion Gap 4 L BUN 23.6 H Creatinine 0.9 Est GFR (CKD-EPI)AfAm 94.48 Est GFR (CKD-EPI)NonAf 81.52 Random Glucose 100 Calcium 8.6 Phosphorus 2.7 Magnesium 2.1 Active Medications Generic Name Dose Route Start Last Admin Trade Name Freq PRN Reason Stop Dose Admin Acetaminophen 650 mg 06/18/19 11:57 Tylenol - PO Q4H PRN PAIN OR FEVER Aspirin 81 mg 06/18/19 12:15 06/19/19 10:13 Asa - PO 81 mg DAILY [facility] Administration Atorvastatin Calcium 20 mg 06/18/19 22:00 06/18/19 22:26 Lipitor - PO 20 mg HS [facility] Administration Heparin Sodium (Porcine) 5,000 unit 06/18/19 12:00 06/19/19 10:13 Heparin - SQ 5,000 unit BID [facility] Administration Vancomycin HCl 1,000 mg in 250 mls @ 166.667 mls/hr 06/18/19 22:00 06/19/19 11:13 Vancomycin (Pre-Docked) IVPB 166.667 mls/hr BID [facility] Administration Protocol Ceftriaxone Sodium 2 gm/ 100 mls @ 200 mls/hr 06/18/19 13:30 06/19/19 10:14 Dextrose IVPB 200 mls/hr DAILY [facility] Administration Protocol Lisinopril 10 mg 06/18/19 12:15 06/19/19 10:13 Prinivil PO 10 mg DAILY [facility] Administration ASSESSMENT/PLAN: Patient is a 78 y.o. M w/ PMHx. of PVD( s/p multiple ballooplasties in b/l popliteal artery and iliac arteries), HTN, Prostate Ca(s/p radiation treatment) , COPD?, HLD, Axillary Abcess (MRSA) and OM (MRSA) presenting after failed outpatient management of left second and third toe cellulitis. Acute cellulitis of Left second and third toes r/o OM ID rec cont IV antibiotic van/mary ann with PMHx of MRSA bacteremia from axillary abcess and MRSA OM of L. second toe( s/p partial amputation) mri is pending Vascular Consult: Betadine soaked gauze between left toes. Kurlex. offload pressure sensitive areas .OOB with assist- fall risk. HTN continue isinopril HLD continue home Lipitor 20mg DVT Ppx Hep SQ Visit type - Emergency Visit Emergency Visit: Yes ED Registration Date: 06/18/19 Care time: The patient presented to the Emergency Department on the above date and was hospitalized for further evaluation of their emergent condition. - New Patient This patient is new to me today: Yes Date on this admission: 06/19/19 - Critical Care Critical Care patient: No - Discharge Referral Referred to [facility] Med P.C.: No ATTENDING PHYSICIAN STATEMENT I saw and evaluated the patient. I reviewed the resident's note and discussed the case with the resident. I agree with the resident's findings and plan as documented. SUBJECTIVE: OBJECTIVE: ASSESSMENT AND PLAN:
--- NOTE | 2019-06-19 16:53 | PN ---
Teaching Attending Note Name of Resident: Risa Topete ATTENDING PHYSICIAN STATEMENT I saw and evaluated the patient. I reviewed the resident's note and discussed the case with the resident. I agree with the resident's findings and plan as documented. SUBJECTIVE: Patient is feeling better with no acute distress. OBJECTIVE: Vital Signs Temperature 98.4 F 06/19/19 09:00 Pulse Rate 66 06/19/19 09:00 Respiratory Rate 20 06/19/19 09:00 Blood Pressure 147/74 06/19/19 09:00 O2 Sat by Pulse Oximetry (%) 98 06/19/19 09:00 GENERAL: The patient is awake, alert, and fully oriented, in no acute distress. HEAD: Normal with no signs of trauma. EYES: PERRL, extraocular movements intact, sclera anicteric, conjunctiva clear. ENT: Ears normal, oropharynx clear without exudates, moist mucous membranes. NECK: Trachea midline, full range of motion, supple. LUNGS: Breath sounds equal, clear to auscultation bilaterally, no wheezes, no crackles, no accessory muscle use. HEART: Regular rate and rhythm, S1, S2 without murmur, rub or gallop. ABDOMEN: Soft, nontender, nondistended, normoactive bowel sounds, no guarding, no rebound, no hepatosplenomegaly, no masses. EXTREMITIES: 2+ pulses, warm, well-perfused, no edema. Left second and third toe creeping erythema. Fissure in the left second toe. NEUROLOGICAL: Cranial nerves II through XII grossly intact. Normal speech, gait not observed. PSYCH: Normal mood, normal affect. SKIN: Warm, dry, normal turgor, no rashes or lesions noted CBCD WBC 4.7 K/mm3 (4.0-10.0) 06/19/19 06:45 RBC 4.78 M/mm3 (4.00-5.60) 06/19/19 06:45 Hgb 15.6 GM/dL (11.7-16.9) 06/19/19 06:45 Hct 45.0 % (35.4-49) 06/19/19 06:45 MCV 94.2 fl (80-96) 06/19/19 06:45 MCHC 34.6 g/dl (32.0-35.9) 06/19/19 06:45 RDW 13.9 % (11.9-15.9) 06/19/19 06:45 Plt Count 143 K/MM3 (134-434) 06/19/19 06:45 MPV 9.0 fl (7.5-11.1) 06/19/19 06:45 CMP Sodium 142 mmol/L (136-145) 06/19/19 06:00 Potassium 4.1 mmol/L (3.5-5.1) 06/19/19 06:00 Chloride 108 mmol/L (98-107) H 06/19/19 06:00 Carbon Dioxide 29 mmol/L (21-32) 06/19/19 06:00 Anion Gap 4 MMOL/L (8-16) L 06/19/19 06:00 BUN 23.6 mg/dL (7-18) H 06/19/19 06:00 Creatinine 0.9 mg/dL (0.55-1.3) 06/19/19 06:00 Random Glucose 100 mg/dL (74-106) 06/19/19 06:00 Calcium 8.6 mg/dL (8.5-10.1) 06/19/19 06:00 Total Bilirubin 0.6 mg/dL (0.2-1) 06/18/19 08:39 AST 18 U/L (15-37) 06/18/19 08:39 ALT 18 U/L (13-61) 06/18/19 08:39 Alkaline Phosphatase 96 U/L (45-117) 06/18/19 08:39 Total Protein 7.4 g/dl (6.4-8.2) 06/18/19 08:39 Albumin 4.0 g/dl (3.4-5.0) 06/18/19 08:39 Current Medications Generic Name Dose Route Start Last Admin Trade Name Freq PRN Reason Stop Dose Admin Acetaminophen 650 mg 06/18/19 11:57 Tylenol - PO Q4H PRN PAIN OR FEVER Aspirin 81 mg 06/18/19 12:15 06/19/19 10:13 Asa - PO 81 mg DAILY [facility] Administration Atorvastatin Calcium 20 mg 06/18/19 22:00 06/18/19 22:26 Lipitor - PO 20 mg HS [facility] Administration Heparin Sodium (Porcine) 5,000 unit 06/18/19 12:00 06/19/19 10:13 Heparin - SQ 5,000 unit BID [facility] Administration Vancomycin HCl 1,000 mg in 250 mls @ 166.667 mls/hr 06/18/19 22:00 06/19/19 11:13 Vancomycin (Pre-Docked) IVPB 166.667 mls/hr BID [facility] Administration Protocol Ceftriaxone Sodium 2 gm/ 100 mls @ 200 mls/hr 06/18/19 13:30 06/19/19 10:14 Dextrose IVPB 200 mls/hr DAILY [facility] Administration Protocol Lisinopril 10 mg 06/18/19 12:15 06/19/19 10:13 Prinivil PO 10 mg DAILY [facility] Administration Home Medications Medication Instructions Recorded Aspirin [ASA -] 81 mg PO DAILY #0 tab.chew 06/02/13 Atorvastatin Calcium 20 mg PO DAILY 06/18/19 Lisinopril 10 mg PO DAILY 06/18/19 Microbiology 06/18/19 08:58 Toe - Left Second Gram Stain - Final 06/18/19 08:58 Toe - Left Second Wound Culture - Preliminary Group D Strep Or Entero Coccus Diphtheroid/Corynebacterium 06/18/19 09:15 Urine - Urine Clean Catch Urine Culture - Final NO GROWTH OBTAINED 06/18/19 08:58 Blood - Peripheral Venous Blood Culture - Preliminary NO GROWTH OBTAINED AFTER 24 HOURS, INCUBATION TO CONTINUE FOR 4 DAYS. 06/18/19 08:58 Blood - Peripheral Venous Blood Culture - Preliminary NO GROWTH OBTAINED AFTER 24 HOURS, INCUBATION TO CONTINUE FOR 4 DAYS. Foot XRay:no free air noted in soft tissue ASSESSMENT AND PLAN: Patient is a 78 y.o. M w/ PMHx. of PVD( s/p multiple ballooplasties in b/l popliteal artery and iliac arteries), HTN, Prostate Ca(s/p radiation treatment) , COPD?, HLD, Axillary Abcess (MRSA) and OM (MRSA) presenting after failed outpatient management of left second and third toe cellulitis. #Acute cellulitis of Left second and third toes r/o OM, ID consulted, IV antibiotic van/rocephin , mri is pending with PMHx of MRSA bacteremia from axillary abcess and MRSA OM of L. second toe ( s/p partial amputation) Vascular Consult appreciated (Dr. Rodriguez) #HTN: continue isinopril #HLD: continue home Lipitor 20mg #DVT Ppx: Hep SQ BID follow MRI result and cx
[2019-06-19] MEDS ORDERED: PIPERACILLIN/TAZOB 3.375 GM 3.375 GM in DEXTROSE 5%-WATER - 50 ML IVPB SCH (18:00)
[2019-06-19] MEDS: ATORVASTATIN CA 20 MG TABLET (FP) PO SCH (21:31)
[2019-06-19] MEDS ORDERED: VANCOMYCIN 1 GRAM (PRE-DOCKED) 1,000 MG/250 ML BAG IVPB SCH (22:00)
[2019-06-20] MEDS ORDERED: DEXTROSE 5%-WATER 100 ML IVPB ONE (08:57)
--- NOTE | 2019-06-20 09:05 | PN ---
Progress Note (short form) - Note Progress Note: VASCULAR SURGERY Occluded fempop graft. BUN/Cr 23.6/0.9 CTA w/ LE runoff ordered. Hydrate. Medical optimization / clearance
[2019-06-20] MEDS: LISINOPRIL 10 MG TABLET (FP) PO SCH (10:29)
[2019-06-20] MEDS: ASPIRIN 81 MG CHEWABLE TABLETS PO SCH (10:29)
[2019-06-20] MEDS: HEPARIN NA (PORCINE) 5,000 UNITS/ML 1ML VIAL SQ SCH ×2 (10:29→21:44)
[2019-06-20] MEDS: CEFTRIAXONE 2 GM in DEXTROSE 5%-WATER 100 ML IVPB SCH (10:30)
[2019-06-20] MEDS: VANCOMYCIN 1 GRAM (PRE-DOCKED) 1,000 MG/250 ML BAG IVPB SCH ×2 (11:03→21:44)
[2019-06-20] MEDS ORDERED: amLODIPine BESYLATE 5 MG TABLET (FP) PO SCH (12:00)
--- NOTE | 2019-06-20 13:28 | SPA.PREOP ---
- PRE-OP NOTE Dx: Occluded Left femoral-popliteal bypass graft Planned Procedure: Open thrombectomy, angiogram Surgeon: Valdemar Rodriguez Last Vital Signs Temp Pulse Resp BP Pulse Ox 98 F 58 L 20 159/79 96 06/20/19 09:00 06/20/19 09:00 06/20/19 09:00 06/20/19 09:00 06/20/19 09:00 Lab Results WBC 4.7 K/mm3 (4.0-10.0) 06/19/19 06:45 RBC 4.78 M/mm3 (4.00-5.60) 06/19/19 06:45 Hgb 15.6 GM/dL (11.7-16.9) 06/19/19 06:45 Hct 45.0 % (35.4-49) 06/19/19 06:45 MCV 94.2 fl (80-96) 06/19/19 06:45 MCHC 34.6 g/dl (32.0-35.9) 06/19/19 06:45 RDW 13.9 % (11.9-15.9) 06/19/19 06:45 Plt Count 143 K/MM3 (134-434) 06/19/19 06:45 Sodium 142 mmol/L (136-145) 06/19/19 06:00 Potassium 4.1 mmol/L (3.5-5.1) 06/19/19 06:00 Chloride 108 mmol/L (98-107) H 06/19/19 06:00 Carbon Dioxide 29 mmol/L (21-32) 06/19/19 06:00 Anion Gap 4 MMOL/L (8-16) L 06/19/19 06:00 BUN 23.6 mg/dL (7-18) H 06/19/19 06:00 Creatinine 0.9 mg/dL (0.55-1.3) 06/19/19 06:00 Random Glucose 100 mg/dL (74-106) 06/19/19 06:00 Calcium 8.6 mg/dL (8.5-10.1) 06/19/19 06:00 INR 1.06 (0.83-1.09) 06/19/19 06:45 - IMAGING X-ray: Report Reviewed Cat Scan: Report Reviewed MRI: Report Reviewed Other: Report Reviewed - ASSESSMENT/PLAN 1. NPO after breakfast 2. GI/DVT PPX 3. Medical optimization / clearance 4. Consent to be obtained by surgeon after risks, benefits and alternatives discussed with patient and or Health Care Proxy. Problem List - Problems (1) Femoral-popliteal bypass graft occlusion, left Code(s): T82.898A - [facility] COMPLICATION OF VASCULAR PROSTH DEV/GRFT, INIT Visit type - Case Type Case Type: ED Admission - Emergency Emergency Visit: Yes ED Registration Date: 06/18/19 Care time: The patient presented to the Emergency Department on the above date and was hospitalized for further evaluation of their emergent condition. - New patient This patient is new to me today: Yes Date on this admission: 06/20/19
--- NOTE | 2019-06-20 14:29 | PN ---
Physical Exam: SUBJECTIVE: Patient seen and examined. pt offered no complaints. OBJECTIVE: Vital Signs Period Temp Pulse Resp BP Sys/Thayer Pulse Ox Last 24 Hr 97.8 F-98.5 F 58-90 18-20 156-166/73-94 96-98 GENERAL: The patient is awake, alert, and fully oriented, in no acute distress. HEAD: Normal with no signs of trauma. ENT: oropharynx clear without exudates, moist mucous membranes. LUNGS: Breath sounds equal, clear to auscultation bilaterally, no wheezes, no crackles, no accessory muscle use. HEART: Regular rate and rhythm, S1, S2 without murmur, rub or gallop. ABDOMEN: Soft, nontender, nondistended, normoactive bowel sounds, no guarding, no rebound, no hepatosplenomegaly, no masses. EXTREMITIES: 2+ pulses, warm, well-perfused, no edema.Left second shortened with wound/ fisure over dorsum of IP joint with fribrinous tissue, Chronic skin changes throughout 2nd, 3rd and 4th toes with tissue maceration between extending into 1st, 2nd and 3rd web spaces. no foul odor or active d/c. Right Foot without lesion or wounds. PSYCH: Normal mood, normal affect. Active Medications Generic Name Dose Route Start Last Admin Trade Name Freq PRN Reason Stop Dose Admin Acetaminophen 650 mg 06/18/19 11:57 06/19/19 17:46 Tylenol - PO 650 mg Q4H PRN Administration PAIN OR FEVER Aspirin 81 mg 06/18/19 12:15 06/20/19 10:29 Asa - PO 81 mg DAILY BRODY Administration Atorvastatin Calcium 20 mg 06/18/19 22:00 06/19/19 21:31 Lipitor - PO 20 mg HS BRODY Administration Heparin Sodium (Porcine) 5,000 unit 06/18/19 12:00 06/20/19 10:29 Heparin - SQ 5,000 unit BID [facility] Administration Vancomycin HCl 1,000 mg in 250 mls @ 166.667 mls/hr 06/18/19 22:00 06/20/19 11:03 Vancomycin (Pre-Docked) IVPB 166.667 mls/hr BID [facility] Administration Protocol Ceftriaxone Sodium 2 gm/ 100 mls @ 200 mls/hr 06/18/19 13:30 06/20/19 10:30 Dextrose IVPB 200 mls/hr DAILY [facility] Administration Protocol Lisinopril 10 mg 06/18/19 12:15 06/20/19 10:29 Prinivil PO 10 mg DAILY [facility] Administration ASSESSMENT/PLAN: Patient is a 78 y.o. M w/ PMHx. of PVD( s/p multiple ballooplasties in b/l popliteal artery and iliac arteries), HTN, Prostate Ca(s/p radiation treatment) , COPD?, HLD, Axillary Abcess (MRSA) and OM (MRSA) presenting after failed outpatient management of left second and third toe cellulitis. 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 NO MRSA isolated CTA of LE :3cm AAA treated with patent aorto-bi fem graft. 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 Bilateral sub- popliteal disease with Peroneal runoff as primary runoff to foot. Vascular Consult: Occluded fempop graft. Open thrombectomy, angiogram tomorrow 06/21/19. NPO after breakfast. GI/DVT PPX. medical clearance. HTN BP running high will add norvasc 5mg PO after procedure tomorrow if remained elevated. Holding for now to ensure adequate perfusion to LE continue lisinopril 10mg HLD continue home Lipitor 20mg lipid profile sent DVT Ppx Hep SQ Visit type - Emergency Visit Emergency Visit: Yes ED Registration Date: 06/18/19 Care time: The patient presented to the Emergency Department on the above date and was hospitalized for further evaluation of their emergent condition. - New Patient This patient is new to me today: No - Critical Care Critical Care patient: No - Discharge Referral Referred to [facility] Med P.C.: No ATTENDING PHYSICIAN STATEMENT I saw and evaluated the patient. I reviewed the resident's note and discussed the case with the resident. I agree with the resident's findings and plan as documented. SUBJECTIVE: OBJECTIVE: ASSESSMENT AND PLAN:
--- NOTE | 2019-06-20 14:39 | PN ---
Teaching Attending Note Name of Resident: Risa Topete ATTENDING PHYSICIAN STATEMENT I saw and evaluated the patient. I reviewed the resident's note and discussed the case with the resident. I agree with the resident's findings and plan as documented. SUBJECTIVE: No fever or chills. no DONOVAN . no abd pain . no SOB . OBJECTIVE: NAD Cv : RRR Lungs: CTAB Ext : no edema or erythema on legs . R DP is 1+ , R PT not felt, warm foot . Limited L foot exam as RN just changed dressing. ASSESSMENT AND PLAN: 78 y/o man with h/o PVD, s/p baloonplasties, HTN, HLP, possible COPD, MRSA infection in R axilla, OM with MRSA , prostate cancer s/p Rtx , who presneted with pain in L toes and was found to have cellulitis 1- Cellullitis in R foot toes: - cont ceftriaxone and vanco - check vanco trough this evening - MRI with no evidence of OM 2- PVD: arterial US reviewed. - CTA pending read - vascular input - cont aspirin - check lipids - cont statin 3- HTN: cont lisinopril for now. will adjust regimen if needed DVT PX: change heparin to TID
[2019-06-20] MEDS: PANTOPRAZOLE SODIUM 40 MG VIAL IVPUSH SCH (16:02)
--- NOTE | 2019-06-20 20:38 | PN ---
Progress Note, Physician History of Present Illness: AWAKE, ALERT NO C/O FOOT PAIN TOLERATING ANTIBIOTICS MRI NEGATIVE FOR OSTEOMYELITIS - Current Medication List Current Medications: Active Medications Acetaminophen (Tylenol -) 650 mg PO Q4H PRN PRN Reason: PAIN OR FEVER Last Admin: 06/19/19 17:46 Dose: 650 mg Aspirin (Asa -) 81 mg PO DAILY [facility] Last Admin: 06/20/19 10:29 Dose: 81 mg Atorvastatin Calcium (Lipitor -) 20 mg PO HS [facility] Last Admin: 06/19/19 21:31 Dose: 20 mg Heparin Sodium (Porcine) (Heparin -) 5,000 unit SQ TID BRODY Vancomycin HCl (Vancomycin (Pre-Docked)) 1,000 mg in 250 mls @ 166.667 mls/hr IVPB BID [facility]; Protocol Last Admin: 06/20/19 11:03 Dose: 166.667 mls/hr Ceftriaxone Sodium 2 gm/ (Dextrose) 100 mls @ 200 mls/hr IVPB DAILY [facility]; Protocol Last Admin: 06/20/19 10:30 Dose: 200 mls/hr Lisinopril (Prinivil) 10 mg PO DAILY [facility] Last Admin: 06/20/19 10:29 Dose: 10 mg Pantoprazole Sodium (Protonix Iv) 40 mg IVPUSH DAILY [facility] Last Admin: 06/20/19 16:02 Dose: 40 mg - Objective Vital Signs: Vital Signs Temperature 98.1 F 06/20/19 16:20 Pulse Rate 69 06/20/19 16:20 Respiratory Rate 20 06/20/19 16:20 Blood Pressure 163/77 06/20/19 16:20 O2 Sat by Pulse Oximetry (%) 96 06/20/19 09:00 Constitutional: Yes: No Distress Cardiovascular: Yes: Regular Rate and Rhythm, S1, S2 Respiratory: Yes: CTA Bilaterally Gastrointestinal: Yes: Normal Bowel Sounds, Soft Extremities: Yes: Other (ERYTHEMA/ SWELLING OF L 2/3 TOES IMPROVED) Labs: CBC, BMP 06/19/19 06:45 06/19/19 06:00 INR, PTT INR 1.06 (0.83-1.09) 06/19/19 06:45 Assessment/Plan CELLULITIS L 2ND/ 3RD TOES IMPROVED PERIPHERAL VASCULAR DISEASE CONTINUE EMPIRIC VANCOMYCIN/ CEFTRIAXONE
[2019-06-20] MEDS: ATORVASTATIN CA 20 MG TABLET (FP) PO SCH (21:44)
[2019-06-21] MEDS: HEPARIN NA (PORCINE) 5,000 UNITS/ML 1ML VIAL SQ SCH ×2 (06:02→13:26)
[2019-06-21 07:31] LABS: ALBUMIN 3.5 g/dl (3.4-5.0); BILIRUBIN,TOTAL 0.5 mg/dL (0.2-1); BLOOD UREA NITROGEN 22.6 mg/dL (7-18); CALCIUM 8.7 mg/dL (8.5-10.1); CREATININE 0.9 mg/dL (0.55-1.3); POTASSIUM 4.1 mmol/L (3.5-5.1); TOT PROT 6.6 g/dl (6.4-8.2)
[2019-06-21] MEDS ORDERED: DEXTROSE 5%-WATER 100 ML IVPB ONE (08:47)
[2019-06-21] MEDS: LISINOPRIL 10 MG TABLET (FP) PO SCH (09:02)
[2019-06-21] MEDS: ASPIRIN 81 MG CHEWABLE TABLETS PO SCH (09:02)
[2019-06-21] MEDS: CEFTRIAXONE 2 GM in DEXTROSE 5%-WATER 100 ML IVPB SCH (09:03)
[2019-06-21] MEDS: VANCOMYCIN 1 GRAM (PRE-DOCKED) 1,000 MG/250 ML BAG IVPB SCH (09:38)
[2019-06-21] MEDS: PANTOPRAZOLE SODIUM 40 MG VIAL IVPUSH SCH (11:25)
[2019-06-21] MEDS ORDERED: ATORVASTATIN CA 20 MG TABLET (FP) PO SCH (14:36)
--- NOTE | 2019-06-21 15:21 | PN ---
Physical Exam: SUBJECTIVE: Patient seen and examined. Pt is NPO since breakfast offered no new complaints OBJECTIVE: Vital Signs Period Temp Pulse Resp BP Sys/Thayer Pulse Ox Last 24 Hr 98 F-98.1 F 61-69 18-20 130-165/62-83 95-98 GENERAL: The patient is awake, alert, and fully oriented, in no acute distress. HEAD: Normal with no signs of trauma. ENT: oropharynx clear without exudates, moist mucous membranes. LUNGS: Breath sounds equal, clear to auscultation bilaterally, no wheezes, no crackles, no accessory muscle use. HEART: Regular rate and rhythm, S1, S2 without murmur, rub or gallop. ABDOMEN: Soft, nontender, nondistended, normoactive bowel sounds, no guarding, no rebound, no hepatosplenomegaly, no masses. EXTREMITIES: 2+ pulses, warm, well-perfused, no edema.Left second shortened with wound/ fisure over dorsum of IP joint with fribrinous tissue, Chronic skin changes throughout 2nd, 3rd and 4th toes with tissue maceration between extending into 1st, 2nd and 3rd web spaces. no foul odor or active d/c. Right Foot without lesion or wounds. PSYCH: Normal mood, normal affect. Laboratory Results - last 24 hr 06/20/19 06/20/19 06/21/19 13:59 21:00 05:55 Sodium 142 Potassium 4.1 Chloride 108 H Carbon Dioxide 27 Anion Gap 6 L BUN 22.6 H Creatinine 0.9 Est GFR (CKD-EPI)AfAm 94.48 Est GFR (CKD-EPI)NonAf 81.52 Random Glucose 89 Calcium 8.7 Total Bilirubin 0.5 AST 16 ALT 17 Alkaline Phosphatase 90 Total Protein 6.6 Albumin 3.5 Triglycerides 90 Cholesterol 141 Total LDL Cholesterol 88 HDL Cholesterol 36 L Vancomycin Pre-Dose 16.4 L Blood Type O POSITIVE Antibody Screen Negative Active Medications Generic Name Dose Route Start Last Admin Trade Name Freq PRN Reason Stop Dose Admin Acetaminophen 650 mg 06/18/19 11:57 06/19/19 17:46 Tylenol - PO 650 mg Q4H PRN Administration PAIN OR FEVER Aspirin 81 mg 06/18/19 12:15 06/21/19 09:02 Asa - PO 81 mg DAILY [facility] Administration Atorvastatin Calcium 40 mg 06/21/19 14:36 Lipitor - PO HS [facility] Heparin Sodium (Porcine) 5,000 unit 06/20/19 22:00 06/21/19 13:26 Heparin - SQ 5,000 unit TID [facility] Administration Vancomycin HCl 1,000 mg in 250 mls @ 166.667 mls/hr 06/18/19 22:00 06/21/19 09:38 Vancomycin (Pre-Docked) IVPB 166.667 mls/hr BID [facility] Administration Protocol Ceftriaxone Sodium 2 gm/ 100 mls @ 200 mls/hr 06/18/19 13:30 06/21/19 09:03 Dextrose IVPB 200 mls/hr DAILY [facility] Administration Protocol Lisinopril 10 mg 06/18/19 12:15 06/21/19 09:02 Prinivil PO 10 mg DAILY [facility] Administration Pantoprazole Sodium 40 mg 06/20/19 15:00 06/21/19 11:25 Protonix Iv IVPUSH 40 mg DAILY [facility] Administration ASSESSMENT/PLAN: Patient is a 78 y.o. M w/ PMHx. of PVD( s/p multiple ballooplasties in b/l popliteal artery and iliac arteries), HTN, Prostate Ca(s/p radiation treatment) , COPD?, HLD, Axillary Abcess (MRSA) and OM (MRSA) presenting after failed outpatient management of left second and third toe cellulitis. 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 NO MRSA isolated PAD Vascular consult :Open thrombectomy, angiogram .NPO since breakfast. GI/DVT PPX. CTA of LE :3cm AAA treated with patent aorto-bi fem graft. 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 Bilateral sub- popliteal disease with Peroneal runoff as primary runoff to foot. HTN BP running high will add norvasc 5mg PO after procedure tomorrow if remained elevated. Holding for now to ensure adequate perfusion to LE continue lisinopril 10mg HLD LDL 88 on lipid panel. Tag 90, Chol 141,HDL 36 Lipitor increased to 40mg DVT Ppx Hep SQ Visit type - Emergency Visit Emergency Visit: Yes ED Registration Date: 06/18/19 Care time: The patient presented to the Emergency Department on the above date and was hospitalized for further evaluation of their emergent condition. - New Patient This patient is new to me today: No - Critical Care Critical Care patient: No - Discharge Referral Referred to [facility] Med P.C.: No ATTENDING PHYSICIAN STATEMENT I saw and evaluated the patient. I reviewed the resident's note and discussed the case with the resident. I agree with the resident's findings and plan as documented. SUBJECTIVE: OBJECTIVE: ASSESSMENT AND PLAN:
[2019-06-21] MEDS ORDERED: LIDOCAINE HCL 1%, 10 MG/ML (20ML VIAL) ONE (16:19)
[2019-06-21] MEDS ORDERED: HEPARIN NA (PORCINE) 5,000 UNITS/ML 1ML VIAL ONE ×2 (16:19→17:38)
[2019-06-21] MEDS ORDERED: MIDAZOLAM HCL 2 MG/2 ML SINGLE DOSE VIAL ONE (16:54)
[2019-06-21] MEDS ORDERED: ceFAZolin SODIUM 1 GM VIAL IVPB ONE (17:20)
--- NOTE | 2019-06-21 18:49 | PN ---
Teaching Attending Note Name of Resident: José Franz ATTENDING PHYSICIAN STATEMENT I saw and evaluated the patient. I reviewed the resident's note and discussed the case with the resident. I agree with the resident's findings and plan as documented. SUBJECTIVE: no pain , no fever or chills . no SOB or CP OBJECTIVE: NAD Cv : RRR Lungs: CTAB Ext : no edema or erythema on legs . Dp is not felt . PT not flet b/l . L foot with tender 2nd and 3rd digits but no erythema. non draining ulcers on lateral aspect of 2nd and 3rd digits . warm feet . nl sensation of feet ASSESSMENT AND PLAN: 78 y/o man with h/o PVD, s/p baloonplasties, HTN, HLP, possible COPD, MRSA infection in R axilla, OM with MRSA , prostate cancer s/p Rtx , who presneted with pain in L toes and was found to have cellulitis 1- Cellullitis in R foot toes: No OM on MRI - cont ceftriaxone and vanco - vanco trough noted . will repeat tomorrow 2- PVD: - CTA results reviewed. - for OR today for thrombectomy - cont aspirin - increase lipitor - cont asa 3- HTN: cont lisinopril for now. will adjust regimen if needed DVT PX: heaprin sq
--- NOTE | 2019-06-21 19:29 | OP ---
Operative Note - Note: Operative Date: 06/21/19 Pre-Operative Diagnosis: Thrombosed fem-pop bypass left leg Operation: Open thrombectomy left leg bypass. Placement covered stents popliteal artery. Angioplasty tibial artery Findings: Thrombosed bypass left fem-popStenosis and occlusion popliteal artery Patent peroneal artery runoff with proximal stenosis. Occluded AT and PT 6 mm x 5 cm Viabahn 7 mm x 37 mm LifeStent 4 mm angioplasty proximal peroneal and TPT 5 mm INSOLE COVERER popliteal 8 mm INSOLE COVERER proximal stent Implants: Viabahn. LifeStent Post-Operative Diagnosis: Same as Pre-op Surgeon: Valdemar Rodriguez Design Drafter Chief: Miguel Lawson Anesthesiologist/TODDLER CAREGIVER: Pili Ornelas Anesthesia: General Specimens Removed: Thrombus from graft Estimated Blood Loss (mls): 200
--- NOTE | 2019-06-21 19:35 | SURG ---
Surgery Computer Systems Consultant Note Computer Systems Consultant: Miguel Lawson PA-C Date of Service: 06/21/19 Diagnosis: Thrombosed left fem-pop graft Procedure: Open thrombectomy left leg bypass. Placement covered stents popliteal artery. Angioplasty tibial artery I was present for the entirety of the operative procedure. For further detail, please refer to operative report. Visit type - Case Type Case Type: ED Admission
[2019-06-21] MEDS ORDERED: HEPARIN NA (PORCINE) 5,000 UNITS/ML 1ML VIAL IVPUSH PRN ×2 (19:38)
[2019-06-21] MEDS ORDERED: ONDANSETRON 4 MG/2 ML VIAL IVPUSH PRN (19:39)
[2019-06-21] MEDS ORDERED: ACETAMINOPHEN 1000 MG/100 ML VIAL (NON FORMULARY) IVPB ONE (19:40)
[2019-06-21] MEDS ORDERED: LACTATED RINGERS SOLUTION 1,000 ML IV SCH (19:45)
[2019-06-21] MEDS ORDERED: ACETAMINOPHEN 325 MG TABLET (FP) PO PRN (20:05)
[2019-06-21 20:35] LABS: HEMATOCRIT 43.8 % (35.4-49); HEMOGLOBIN 14.8 GM/dL (11.7-16.9); MCH 31.7 pg (25.7-33.7); MCHC 33.7 g/dl (32.0-35.9); MEAN CELL VOLUME 94.1 fl (80-96); MEAN PLT VOLUME 9.3 fl (7.5-11.1); PLATELET COUNT 155 K/MM3 (134-434); RBC 4.66 M/mm3 (4.00-5.60); RDW 14.1 % (11.9-15.9); WHITE BLOOD COUNT 8.2 K/mm3 (4.0-10.0)
[2019-06-21] MEDS ORDERED: ACETAMINOPHEN INJECTION 100 ML IVPB ONE (20:46)
--- NOTE | 2019-06-21 21:36 | CONSULT ---
Consultation: REQUESTING PROVIDER: Dr Rodriguez CONSULT REQUEST: We have been asked to medically evaluate this patient for (s/p Open thrombectomy left leg bypass. Placement covered stents popliteal artery. Angioplasty tibial artery). HISTORY OF PRESENT ILLNESS: Pt is a 78 y/o M with a past medical history of prostate cancer(s/p radiation therepy), PAD( s/p multiple balloonplasties in b/l popliteal artery and iliac arteries), and HTN who presented initially to [facility] due to cellulites of his left second toe. Duplex imaging of LLE revealed an occluded Left femoral- popliteal bypass graft. Pt is POD#0 Open thrombectomy left leg bypass. Placement covered stents popliteal artery, angioplasty tibial artery. REVIEW OF SYSTEMS: CONSTITUTIONAL: Absent: fever, chills, diaphoresis, generalized weakness, malaise, loss of appetite, weight change HEENT: Absent: rhinorrhea, nasal congestion, throat pain, throat swelling, difficulty swallowing, mouth swelling, ear pain, eye pain, visual changes CARDIOVASCULAR: Absent: chest pain, syncope, palpitations, irregular heart rate, lightheadedness , peripheral edema RESPIRATORY: Absent: cough, shortness of breath, dyspnea with exertion, orthopnea, wheezing, stridor, hemoptysis GASTROINTESTINAL: Absent: abdominal pain, abdominal distension, nausea, vomiting, diarrhea, constipation, melena, hematochezia GENITOURINARY: Absent: dysuria, frequency, urgency, hesitancy, hematuria, flank pain, genital pain MUSCULOSKELETAL: Absent: myalgia, arthralgia, joint swelling, back pain, neck pain SKIN: Absent: rash, itching, pallor HEMATOLOGIC/IMMUNOLOGIC: Absent: easy bleeding, easy bruising, lymphadenopathy, frequent infections ENDOCRINE: Absent: unexplained weight gain, unexplained weight loss, heat intolerance, cold intolerance NEUROLOGIC: Absent: headache, focal weakness or paresthesias, dizziness, unsteady gait, seizure, mental status changes, bladder or bowel incontinence PSYCHIATRIC: Absent: anxiety, depression, suicidal or homicidal ideation, hallucinations. PHYSICAL EXAMINATION Vital Signs - 24 hr 06/21/19 06/21/19 06/21/19 00:00 06:36 09:00 Temperature 98.1 F 98 F Pulse Rate 65 68 61 Respiratory 18 20 20 Rate Blood Pressure 154/72 165/83 148/70 O2 Sat by Pulse 98 Oximetry (%) 10/11/0806/21/19 06/21/19 09:45 15:26 19:33 Temperature 98 F 97.8 F Pulse Rate 68 61 75 Respiratory 18 18 16 Rate Blood Pressure 130/62 137/73 140/68 O2 Sat by Pulse 100 Oximetry (%) 06/21/19 06/21/19 06/21/19 19:45 20:00 20:15 Temperature Pulse Rate 75 73 70 Respiratory 14 16 14 Rate Blood Pressure 137/66 142/57 L 168/67 O2 Sat by Pulse 100 100 100 Oximetry (%) 06/21/19 06/21/19 06/21/19 20:30 20:45 21:00 Temperature 97.8 F Pulse Rate 71 70 76 Respiratory 14 14 14 Rate Blood Pressure 161/70 158/77 150/90 O2 Sat by Pulse 100 100 100 Oximetry (%) GENERAL: NAD HEAD: Normal with no signs of trauma. EYES: EOMI Sclera Clear EARS, NOSE, THROAT: MMM NECK: Normal range of motion, supple without lymphadenopathy, JVD, or masses. LUNGS: CTAB HEART: RRR S1S2 ABDOMEN: Soft, nontender. LOWER EXTREMITIES: Feet Warm to touch b/l. DP 1+ bilateral. Onychomycosis bilaterally. Bandage over left toes. NEUROLOGICAL: Cranial nerves II-XII intact. PSYCHIATRIC: Cooperative. Good eye contact. Appropriate mood and affect. SKIN: Warm, dry, normal turgor, no rashes or lesions noted. Laboratory Results - last 24 hr 06/20/19 06/21/19 06/21/19 21:00 05:55 20:00 WBC RBC Hgb Hct MCV MCH MCHC RDW Plt Count MPV PTT (Actin FS) > 400.0 H Sodium 142 Potassium 4.1 Chloride 108 H Carbon Dioxide 27 Anion Gap 6 L BUN 22.6 H Creatinine 0.9 Est GFR (CKD-EPI)AfAm 94.48 Est GFR (CKD-EPI)NonAf 81.52 Random Glucose 89 Calcium 8.7 Total Bilirubin 0.5 AST 16 ALT 17 Alkaline Phosphatase 90 Total Protein 6.6 Albumin 3.5 Triglycerides 90 Cholesterol 141 Total LDL Cholesterol 88 HDL Cholesterol 36 L Vancomycin Pre-Dose 16.4 L 06/21/19 20:00 WBC 8.2 RBC 4.66 Hgb 14.8 Hct 43.8 MCV 94.1 MCH 31.7 MCHC 33.7 RDW 14.1 Plt Count 155 MPV 9.3 PTT (Actin FS) Sodium Potassium Chloride Carbon Dioxide Anion Gap BUN Creatinine Est GFR (CKD-EPI)AfAm Est GFR (CKD-EPI)NonAf Random Glucose Calcium Total Bilirubin AST ALT Alkaline Phosphatase Total Protein Albumin Triglycerides Cholesterol Total LDL Cholesterol HDL Cholesterol Vancomycin Pre-Dose Active Medications Generic Name Dose Route Start Last Admin Trade Name Freq PRN Reason Stop Dose Admin Acetaminophen 650 mg 06/21/19 20:05 Tylenol - PO Q4H PRN PAIN OR FEVER Aspirin 81 mg 06/22/19 10:00 Asa - PO DAILY [facility] Atorvastatin Calcium 40 mg 06/21/19 22:00 Lipitor - PO HS [facility] Fentanyl 25 mcg 06/21/19 19:39 Sublimaze Injection - IVPUSH [id number] PRN PAIN-PACU ORDER X 4 DOSES ONLY Heparin Sodium (Porcine) 1,000 unit 06/21/19 19:38 Heparin - IVPUSH PRN PRN Heparin Heparin Sodium (Porcine) 5,000 unit 06/21/19 19:38 Heparin - IVPUSH PRN PRN Heparin Heparin Sodium (Porcine) 25, 500 mls @ 20 mls/hr 06/22/19 00:01 000 unit/ Sodium Chloride IV TITR [facility] Protocol 1,000 UNIT/HR Lactated Ringer's 1,000 mls @ 125 mls/hr 06/21/19 19:45 Lactated Ringers Solution IV ASDIR [facility] Lisinopril 10 mg 06/22/19 10:00 Prinivil PO DAILY [facility] Ondansetron HCl 4 mg 06/21/19 19:39 Zofran Injection IVPUSH Q6H PRN NAUSEA AND/OR VOMITING Pantoprazole Sodium 40 mg 06/22/19 10:00 Protonix Iv IVPUSH DAILY [facility] EXAM#: TYPE/EXAM: RESULT: [id number] US/DUPLEX ART. LOWER COMPL US History provided: Evaluate left leg bypass and bilateral flow. Real-time and Doppler evaluation of the arteries of both lower extremities demonstrates the following : On the right side, weak monophasic flow is identified within the common femoral artery. There is complete occlusion of the superficial femoral artery. Weak monophasic reconstructed flow is noted within the popliteal and posterior tibial arteries. On the left side, the patient is S/P femoropopliteal bypass graft. The graft is completely occluded. Weak monophasic flow is noted within the popliteal and posterior tibial veins. IMPRESSION: 1. Occluded right SFA with weak distal flow. 2. Occluded left femoropopliteal bypass graft with weak distal flow. Clinical correlation and follow-up studies, such as CTA or conventional angiography, are now recommended. ASSESSMENT/PLAN: Pt is a 78 y/o M with a past medical history of prostate cancer(s/p radiation therepy), PAD( s/p multiple balloonplasties in b/l popliteal artery and iliac arteries), and HTN who presented initially to [facility] due to cellulites; was found to have an occluded Left femoral-popliteal bypass graft. #CARDIO: HTN, HLD -Resume Lisinopril, ASA, and Lipitor #VASC- PVD -Duplex LLE: Occluded right SFA with weak distal flow. 2. Occluded left femoropopliteal bypass graft with weak distal flow. -s/p open thrombectomy left leg bypass. Placement covered stents popliteal artery. Angioplasty tibial artery -Doppler Checks Q1H for first 4 hours. -PTT > 400. Will start Heparin Drip [address] [facility] Surgery recs. #FEN LR@125cc/hr Monitor Electrolytes Na Controlled Diet #DVT ppx: -HEP gtt Dispo: We will continue to follow the patient. Thank you for this consultative opportunity. Visit type - Emergency Visit Emergency Visit: No - New Patient This patient is new to me today: Yes Date on this admission: 06/21/19 - Critical Care Critical Care patient: Yes Total Critical Care Time (in minutes): 35 Critical Care Statement: The care of this patient involved high complexity decision making to prevent further life threatening deterioration of the patient 's condition and/or to evaluate & treat vital organ system(s) failure or risk of failure.
[2019-06-21] MEDS ORDERED: MUPIROCIN 2% TOPICAL OINTMENT FOR DECOLONIZATION NS SCH (22:00)
[2019-06-21] MEDS ORDERED: CHLORHEXIDINE GLUCONATE 4% CLEANSER FOR DECOLONIZATION TP SCH (22:00)
[2019-06-21] MEDS: ATORVASTATIN CA 20 MG TABLET (FP) PO SCH (23:33)
[2019-06-22] MEDS: HEPARIN - 25,000 UNIT in SODIUM CHLORIDE 495 ML IV SCH (00:03)
[2019-06-22 07:10] LABS: BASO % 0.6 % (0-2.0); HEMATOCRIT 38.9 % (35.4-49); HEMOGLOBIN 13.3 GM/dL (11.7-16.9); LYMPH % 7.5 % (8-40); MCH 32.4 pg (25.7-33.7); MCHC 34.3 g/dl (32.0-35.9); MEAN CELL VOLUME 94.4 fl (80-96); MEAN PLT VOLUME 9.3 fl (7.5-11.1); MONO % 7.1 % (3.8-10.2); NEUT % 84.8 % (42.8-82.8); PLATELET COUNT 154 K/MM3 (134-434); RBC 4.13 M/mm3 (4.00-5.60); RDW 14.4 % (11.9-15.9); WHITE BLOOD COUNT 8.6 K/mm3 (4.0-10.0)
[2019-06-22] MEDS ORDERED: VANCOMYCIN 1 GM in D5W (PRE-DOCKED) 1,000 MG/250 ML IVPB ONE (08:00)
[2019-06-22] MEDS ORDERED: CEFTRIAXONE 2 GM in DEXTROSE 5%-WATER 100 ML IVPB ONE (08:15)
[2019-06-22 08:30] LABS: CALCIUM 8.3 mg/dL (8.5-10.1)
--- NOTE | 2019-06-22 08:50 | PN ---
Progress Note (short form) - Note Progress Note: 78yo M s/p LLE open thrombectomy POD 1, pt seen and examined at bedside in ICU. Currently on heparin drip. Pt complains of mild groin pain, but no numbness or weakness in the leg. Pt denies fever, chills, n/v, cp, sob. Last Vital Signs Temp Pulse Resp BP Pulse Ox 97.8 F 65 18 138/69 100 06/21/19 21:00 06/22/19 08:05 06/22/19 08:05 06/22/19 08:05 06/22/19 07:38 CBC, BMP 06/22/19 06:19 06/22/19 06:19 PE: Gen: A&O x3 Resp: breathing comfortably LLE: Incision is clean, mild swelling, dopplarable PT and DP pulses, foot warm and pink. Dressing in place over toes. Problem List - Problems (1) Femoral-popliteal bypass graft occlusion, left Assessment/Plan: Plan -continue heparin drip, recheck PTT as per heparin protocol and adjust as needed. -vascular checks -regular diet Code(s): T82.898A - [facility] COMPLICATION OF VASCULAR PROSTH DEV/GRFT, INIT
[2019-06-22] MEDS: ASPIRIN 81 MG CHEWABLE TABLETS PO SCH (09:47)
[2019-06-22] MEDS: PANTOPRAZOLE SODIUM 40 MG VIAL IVPUSH SCH (09:47)
[2019-06-22] MEDS ORDERED: LISINOPRIL 10 MG TABLET (FP) PO SCH (10:00)
--- NOTE | 2019-06-22 11:47 | PN ---
Teaching Attending Note Name of Resident: Jonathan Toussaint ATTENDING PHYSICIAN STATEMENT I saw and evaluated the patient. I reviewed the resident's note and discussed the case with the resident. I agree with the resident's findings and plan as documented. SUBJECTIVE: Pt seen and examined in the ICU. Pain controlled. Denies shortness of breath or chest pain. OBJECTIVE: Vital Signs Period Temp Pulse Resp BP Sys/Thayer Pulse Ox Last 24 Hr 97.8 F-98 F 61-76 14-68 114-168/57-90 100-100 Intake & Output 06/19/19 06/20/19 06/21/19 06/22/19 23:59 23:59 23:59 23:59 Intake Total 300 1300 1800 962 Output Total 200 500 Balance 300 1300 1600 462 Weight 62.596 kg Gen: NAD at rest Heart: RRR Lung: decreased breath sounds at the bases Abd: soft, nontender Ext: no edema, dressings slightly bloody CBC, BMP 06/22/19 06:19 06/22/19 06:19 Active Medications Acetaminophen (Tylenol -) 650 mg PO Q4H PRN PRN Reason: PAIN OR FEVER Aspirin (Asa -) 81 mg PO DAILY [facility] Last Admin: 06/22/19 09:47 Dose: 81 mg Atorvastatin Calcium (Lipitor -) 40 mg PO HS [facility] Last Admin: 06/21/19 23:33 Dose: 40 mg Fentanyl (Sublimaze Injection -) 25 mcg IVPUSH [id number] PRN PRN Reason: PAIN-PACU ORDER X 4 DOSES ONLY Heparin Sodium (Porcine) (Heparin -) 1,000 unit IVPUSH PRN PRN PRN Reason: Heparin Heparin Sodium (Porcine) (Heparin -) 5,000 unit IVPUSH PRN PRN PRN Reason: Heparin Heparin Sodium (Porcine) 25, (000 unit/ Sodium Chloride) 500 mls @ 20 mls/hr IV TITR [facility]; Protocol Last Admin: 06/22/19 00:03 Dose: 800 unit/hr, 16 mls/hr Lactated Ringer's (Lactated Ringers Solution) 1,000 mls @ 125 mls/hr IV ASDIR [facility] Last Admin: 06/21/19 23:34 Dose: 125 mls/hr Lisinopril (Prinivil) 10 mg PO DAILY [facility] Last Admin: 06/22/19 09:47 Dose: 10 mg Ondansetron HCl (Zofran Injection) 4 mg IVPUSH Q6H PRN PRN Reason: NAUSEA AND/OR VOMITING Pantoprazole Sodium (Protonix Iv) 40 mg IVPUSH DAILY [facility] Last Admin: 06/22/19 09:47 Dose: 40 mg ASSESSMENT AND PLAN: Thrombosed fem-pop bypass left leg s/p Open Thrombectomy/Stent placement/Angioplasty PAD Hyperlipidemia HTN Prostate Ca - continue anticoagulation - ASA - pain control - incentive spirometry - activity, disposition per surgery
--- NOTE | 2019-06-22 11:57 | PN ---
Addendum entered and electronically signed by Risa Topete, RESIDENT 12:17: plan: trending PTT, CBCs Original Note: Physical Exam: SUBJECTIVE: Patient seen and examined. Lying down comfortably. no complaint of fever or pain OBJECTIVE: Vital Signs Period Temp Pulse Resp BP Sys/Thayer Pulse Ox Last 24 Hr 97.8 F-98 F 61-76 14-68 114-168/57-90 100-100 GENERAL: The patient is awake, alert, and fully oriented, in no acute distress. HEAD: Normal with no signs of trauma. ENT: oropharynx clear without exudates, moist mucous membranes. LUNGS: Breath sounds equal, clear to auscultation bilaterally, no wheezes, no crackles, no accessory muscle use. HEART: Regular rate and rhythm, S1, S2 without murmur, rub or gallop. ABDOMEN: Soft, nontender, nondistended, normoactive bowel sounds, no guarding, no rebound, no hepatosplenomegaly, no masses. EXTREMITIES: 2+ on L 1+ on R pulses, warm, perfused, no edema.Left second shortened with wound/ fisure over dorsum of IP joint with fribrinous tissue, Chronic skin changes throughout 2nd, 3rd and 4th toes with tissue maceration between extending into 1st, 2nd and 3rd web spaces. no foul odor or active d/c. Right Foot without lesion or wounds. PSYCH: Normal mood, normal affect. Laboratory Results - last 24 hr 06/21/19 06/21/19 06/22/19 20:00 20:00 06:19 WBC 8.2 8.6 RBC 4.66 4.13 Hgb 14.8 13.3 Hct 43.8 38.9 MCV 94.1 94.4 MCH 31.7 32.4 MCHC 33.7 34.3 RDW 14.1 14.4 Plt Count 155 154 MPV 9.3 9.3 Absolute Neuts (auto) 7.3 Neutrophils % 84.8 H D Lymphocytes % 7.5 L D Monocytes % 7.1 Eosinophils % 0.0 D Basophils % 0.6 Nucleated RBC % 0 PTT (Actin FS) > 400.0 H Sodium Potassium Chloride Carbon Dioxide Anion Gap BUN Creatinine Est GFR (CKD-EPI)AfAm Est GFR (CKD-EPI)NonAf Random Glucose Calcium 06/22/19 06/22/19 06:19 06:19 WBC RBC Hgb Hct MCV MCH MCHC RDW Plt Count MPV Absolute Neuts (auto) Neutrophils % Lymphocytes % Monocytes % Eosinophils % Basophils % Nucleated RBC % PTT (Actin FS) 75.9 H Sodium 142 Potassium 5.0 Chloride 107 Carbon Dioxide 29 Anion Gap 6 L BUN 24.0 H Creatinine 1.0 Est GFR (CKD-EPI)AfAm 83.18 Est GFR (CKD-EPI)NonAf 71.77 Random Glucose 122 H Calcium 8.3 L Active Medications Generic Name Dose Route Start Last Admin Trade Name Freq PRN Reason Stop Dose Admin Acetaminophen 650 mg 06/21/19 20:05 Tylenol - PO Q4H PRN PAIN OR FEVER Amoxicillin/Clavulanate Potassium 1 tab 06/22/19 17:30 Augmentin - 875mg Tablet PO BID@0800,1730 [facility] Aspirin 81 mg 06/22/19 10:00 06/22/19 09:47 Asa - PO 81 mg DAILY [facility] Administration Atorvastatin Calcium 40 mg 06/21/19 22:00 06/21/19 23:33 Lipitor - PO 40 mg HS [facility] Administration Fentanyl 25 mcg 06/21/19 19:39 Sublimaze Injection - IVPUSH [id number] PRN PAIN-PACU ORDER X 4 DOSES ONLY Heparin Sodium (Porcine) 1,000 unit 06/21/19 19:38 Heparin - IVPUSH PRN PRN Heparin Heparin Sodium (Porcine) 5,000 unit 06/21/19 19:38 Heparin - IVPUSH PRN PRN Heparin Heparin Sodium (Porcine) 25, 500 mls @ 20 mls/hr 06/22/19 00:01 06/22/19 00: 03 000 unit/ Sodium Chloride IV 800 unit/hr TITR [facility] 16 mls/hr Administration Protocol 1,000 UNIT/HR Lactated Ringer's 1,000 mls @ 125 mls/hr 06/21/19 19:45 06/21/19 23:34 Lactated Ringers Solution IV 125 mls/hr ASDIR [facility] Administration Lisinopril 10 mg 06/22/19 10:00 06/22/19 09:47 Prinivil PO 10 mg DAILY [facility] Administration Ondansetron HCl 4 mg 06/21/19 19:39 Zofran Injection IVPUSH Q6H PRN NAUSEA AND/OR VOMITING Pantoprazole Sodium 40 mg 06/22/19 10:00 06/22/19 09:47 Protonix Iv IVPUSH 40 mg DAILY [facility] Administration ASSESSMENT/PLAN: Patient is a 78 y.o. M w/ PMHx. of PVD( s/p multiple ballooplasties in b/l popliteal artery and iliac arteries), HTN, Prostate Ca(s/p radiation treatment) , COPD?, HLD, Axillary Abcess (MRSA) and OM (MRSA) presenting after failed outpatient management of left second and third toe cellulitis. Acute cellulitis of Left second and third toes MRI negative for OM Switched to augmentin 875mg BID PAD S/P Open thrombectomy of left leg bypass, angioplasty tibial artery. R leg nothing to do for now per vascular Doppler checks. currently 2+ on L dorsalis pedis. 2+ L PT. faint on R leg. PTT monitoring. overnight >400. repeat this am 75.9 currently on 800u/h of heparin. Will eventually switch to eliquis 5mg BID when able per vascular rec. ASA in addtion? pending vascular rec. CTA of LE :3cm AAA treated with patent aorto-bi fem graft. 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 Bilateral sub- popliteal disease with Peroneal runoff as primary runoff to foot. HTN BP normalized trending around 110-130/80s no need for additional coverage continue lisinopril 10mg HLD LDL 88 on lipid panel. Tag 90, Chol 141,HDL 36 Lipitor increased to 40mg DVT Ppx Hep Visit type - Emergency Visit Emergency Visit: Yes ED Registration Date: 06/18/19 Care time: The patient presented to the Emergency Department on the above date and was hospitalized for further evaluation of their emergent condition. - New Patient This patient is new to me today: No - Critical Care Critical Care patient: Yes Total Critical Care Time (in minutes): 35 Critical Care Statement: The care of this patient involved high complexity decision making to prevent further life threatening deterioration of the patient 's condition and/or to evaluate & treat vital organ system(s) failure or risk of failure. - Discharge Referral Referred to [facility] No ATTENDING PHYSICIAN STATEMENT I saw and evaluated the patient. I reviewed the resident's note and discussed the case with the resident. I agree with the resident's findings and plan as documented. SUBJECTIVE: OBJECTIVE: ASSESSMENT AND PLAN:
--- NOTE | 2019-06-22 12:59 | PN ---
Teaching Attending Note Name of Resident: Risa Topete ATTENDING PHYSICIAN STATEMENT I saw and evaluated the patient. I reviewed the resident's note and discussed the case with the resident. I agree with the resident's findings and plan as documented. SUBJECTIVE: No fever or chills. No DONOVAN , no PC or SOB. No pain in legs or feet OBJECTIVE: NAD Cv: RRR Lungs: CTAB Ext: no edema or erythema on legs. DP 1+ on L and un-palpable on R. PT 1+ on L and un-palpable on R. is not felt . PT not felt b/l . warm L foot, cool R foot L foot with tender 2nd and 3rd digits but no erythema. non draining ulcers on lateral aspect of 2nd and 3rd digits. nl sensation of feet ASSESSMENT AND PLAN: 78 y/o man with h/o PVD, s/p baloonplasties, HTN, HLP, possible COPD, MRSA infection in R axilla, OM with MRSA , prostate cancer s/p Rtx , who presneted with pain in L toes and was found to have cellulitis 1- Cellullitis in R foot toes: No OM on MRI - switch to Augmentin . 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 d/w vascular 3- HTN: cont lisinopril DVT PX: on heparin gtt Critical Care Total Critical Care Time (in minutes): 30 Critical Care Statement: The care of this patient involved high complexity decision making to prevent further life threatening deterioration of the patient 's condition and/or to evaluate & treat vital organ system(s) failure or risk of failure.
[2019-06-22] MEDS ORDERED: PT OWN MED DRAWER 7, Y5N ONE (13:51)
--- NOTE | 2019-06-22 14:54 | PN ---
Progress Note, Physician Chief Complaint: s/p angioplasty under general anesthesia History of Present Illness: post op day one - Current Medication List Current Medications: Active Medications Acetaminophen (Tylenol -) 650 mg PO Q4H PRN PRN Reason: PAIN OR FEVER Amoxicillin/Clavulanate Potassium (Augmentin - 875mg Tablet) 1 tab PO BID@0800, 1730 [facility] Aspirin (Asa -) 81 mg PO DAILY [facility] Last Admin: 06/22/19 09:47 Dose: 81 mg Atorvastatin Calcium (Lipitor -) 40 mg PO HS [facility] Last Admin: 06/21/19 23:33 Dose: 40 mg Fentanyl (Sublimaze Injection -) 25 mcg IVPUSH [id number] PRN PRN Reason: PAIN-PACU ORDER X 4 DOSES ONLY Heparin Sodium (Porcine) (Heparin -) 1,000 unit IVPUSH PRN PRN PRN Reason: Heparin Heparin Sodium (Porcine) (Heparin -) 5,000 unit IVPUSH PRN PRN PRN Reason: Heparin Heparin Sodium (Porcine) 25, (000 unit/ Sodium Chloride) 500 mls @ 20 mls/hr IV TITR [facility]; Protocol Last Admin: 06/22/19 00:03 Dose: 800 unit/hr, 16 mls/hr Lactated Ringer's (Lactated Ringers Solution) 1,000 mls @ 125 mls/hr IV ASDIR [facility] Last Admin: 06/21/19 23:34 Dose: 125 mls/hr Lisinopril (Prinivil) 10 mg PO DAILY [facility] Last Admin: 06/22/19 09:47 Dose: 10 mg Ondansetron HCl (Zofran Injection) 4 mg IVPUSH Q6H PRN PRN Reason: NAUSEA AND/OR VOMITING Pantoprazole Sodium (Protonix Iv) 40 mg IVPUSH DAILY [facility] Last Admin: 06/22/19 09:47 Dose: 40 mg - Objective Vital Signs: Vital Signs Temperature 97.8 F 06/22/19 10:00 Pulse Rate 68 06/22/19 12:00 Respiratory Rate 18 06/22/19 12:00 Blood Pressure 134/54 L 06/22/19 12:00 O2 Sat by Pulse Oximetry (%) 100 06/22/19 07:38 Constitutional: Yes: Well Nourished Cardiovascular: Yes: WNL Respiratory: Yes: WNL Gastrointestinal: Yes: WNL Labs: CBC, BMP 06/22/19 06:19 06/22/19 06:19 INR, PTT INR 1.06 (0.83-1.09) 06/19/19 06:45 Assessment/Plan No adverse anesthetic events, dept of anesthesia will sign off care at this time.
[2019-06-22] MEDS: AMOX TR/POT CLAV 875MG/125MG TABLETS (FP) PO SCH (17:53)
[2019-06-22] MEDS: ATORVASTATIN CA 20 MG TABLET (FP) PO SCH (21:51)
--- NOTE | 2019-06-22 22:07 | PN ---
Physical Exam: SUBJECTIVE: Patient seen and examined at bedside. No acute events overnight. OBJECTIVE: Vital Signs Period Temp Pulse Resp BP Sys/Thayer Pulse Ox Last 24 Hr 97.8 F-97.8 F 65-70 14-68 114-138/54-71 100-100 GENERAL: The patient is awake, alert, and fully oriented, in no acute distress. NECK: Trachea midline, full range of motion, supple. LUNGS: Breath sounds equal, clear to auscultation bilaterally, no wheezes HEART: Regular rate and rhythm, S1, S2 without murmur, rub or gallop. ABDOMEN: Soft, nontender, nondistended EXTREMITIES: pulses present on doppler, warm, well-perfused, no edema. SKIN: Warm, dry, no rashes or lesions noted Laboratory Results - last 24 hr 06/22/19 06/22/19 06/22/19 06:19 06:19 06:19 WBC 8.6 RBC 4.13 Hgb 13.3 Hct 38.9 MCV 94.4 MCH 32.4 MCHC 34.3 RDW 14.4 Plt Count 154 MPV 9.3 Absolute Neuts (auto) 7.3 Neutrophils % 84.8 H D Lymphocytes % 7.5 L D Monocytes % 7.1 Eosinophils % 0.0 D Basophils % 0.6 Nucleated RBC % 0 PTT (Actin FS) 75.9 H Sodium 142 Potassium 5.0 Chloride 107 Carbon Dioxide 29 Anion Gap 6 L BUN 24.0 H Creatinine 1.0 Est GFR (CKD-EPI)AfAm 83.18 Est GFR (CKD-EPI)NonAf 71.77 Random Glucose 122 H Calcium 8.3 L 06/22/19 13:43 WBC RBC Hgb Hct MCV MCH MCHC RDW Plt Count MPV Absolute Neuts (auto) Neutrophils % Lymphocytes % Monocytes % Eosinophils % Basophils % Nucleated RBC % PTT (Actin FS) 61.2 H Sodium Potassium Chloride Carbon Dioxide Anion Gap BUN Creatinine Est GFR (CKD-EPI)AfAm Est GFR (CKD-EPI)NonAf Random Glucose Calcium Active Medications Generic Name Dose Route Start Last Admin Trade Name Freq PRN Reason Stop Dose Admin Acetaminophen 650 mg 06/21/19 20:05 Tylenol - PO Q4H PRN PAIN OR FEVER Amoxicillin/Clavulanate Potassium 1 tab 06/22/19 17:30 06/22/19 17:53 Augmentin - 875mg Tablet PO 1 tab BID@0800,1730 [facility] Administration Aspirin 81 mg 06/22/19 10:00 06/22/19 09:47 Asa - PO 81 mg DAILY [facility] Administration Atorvastatin Calcium 40 mg 06/21/19 22:00 06/22/19 21:51 Lipitor - PO 40 mg HS [facility] Administration Fentanyl 25 mcg 06/21/19 19:39 Sublimaze Injection - IVPUSH [id number] PRN PAIN-PACU ORDER X 4 DOSES ONLY Heparin Sodium (Porcine) 1,000 unit 06/21/19 19:38 Heparin - IVPUSH PRN PRN Heparin Heparin Sodium (Porcine) 5,000 unit 06/21/19 19:38 Heparin - IVPUSH PRN PRN Heparin Heparin Sodium (Porcine) 25, 500 mls @ 20 mls/hr 06/22/19 00:01 06/22/19 00: 03 000 unit/ Sodium Chloride IV 800 unit/hr TITR [facility] 16 mls/hr Administration Protocol 1,000 UNIT/HR Lisinopril 10 mg 06/22/19 10:00 06/22/19 09:47 Prinivil PO 10 mg DAILY [facility] Administration Ondansetron HCl 4 mg 06/21/19 19:39 Zofran Injection IVPUSH Q6H PRN NAUSEA AND/OR VOMITING Pantoprazole Sodium 40 mg 06/22/19 10:00 06/22/19 09:47 Protonix Iv IVPUSH 40 mg DAILY [facility] Administration ASSESSMENT/PLAN: Pt is a 78 y/o M with a past medical history of prostate cancer(s/p radiation therepy), PAD( s/p multiple balloonplasties in b/l popliteal artery and iliac arteries), and HTN who presented initially to [facility] due to cellulites; was found to have an occluded Left femoral-popliteal bypass graft. #CARDIO: HTN, HLD -Resume Lisinopril, ASA, and Lipitor #VASC-> PVD -Duplex LLE: Occluded right SFA with weak distal flow. 2. Occluded left femoropopliteal bypass graft with weak distal flow. -s/p open thrombectomy left leg bypass. Placement covered stents popliteal artery. Angioplasty tibial artery -Doppler Checks were benign with pulse present. -PTT 76 and rpt 61. Pt receiving heparin drip ID - off vanc and ceftriaxone #FEN LR@125cc/hr Monitor Electrolytes Na Controlled Diet Thank you for your consultative opportunity. Patient can be discharged to the floor. #DVT ppx: -HEP gtt Dispo: We will continue to follow the patient. Thank you for this consultative opportunity. Visit type - Emergency Visit Emergency Visit: No - New Patient This patient is new to me today: Yes Date on this admission: 06/22/19 - Critical Care Critical Care patient: Yes Total Critical Care Time (in minutes): 35 Critical Care Statement: The care of this patient involved high complexity decision making to prevent further life threatening deterioration of the patient 's condition and/or to evaluate & treat vital organ system(s) failure or risk of failure. - Discharge Referral Referred to [facility] No ATTENDING PHYSICIAN STATEMENT I saw and evaluated the patient. I reviewed the resident's note and discussed the case with the resident. I agree with the resident's findings and plan as documented. SUBJECTIVE: OBJECTIVE: ASSESSMENT AND PLAN:
[2019-06-23] MEDS: HEPARIN - 25,000 UNIT in SODIUM CHLORIDE 495 ML IV SCH (06:47)
[2019-06-23 06:49] LABS: BASO % 0.9 % (0-2.0); EOS % 3.9 % (0-4.5); HEMATOCRIT 35.1 % (35.4-49); HEMOGLOBIN 12.1 GM/dL (11.7-16.9); LYMPH % 17.6 % (8-40); MCH 32.8 pg (25.7-33.7); MCHC 34.6 g/dl (32.0-35.9); MEAN CELL VOLUME 94.7 fl (80-96); MEAN PLT VOLUME 9.8 fl (7.5-11.1); MONO % 10.2 % (3.8-10.2); NEUT % 67.4 % (42.8-82.8); PLATELET COUNT 131 K/MM3 (134-434); RDW 14.5 % (11.9-15.9)
[2019-06-23 07:34] LABS: BLOOD UREA NITROGEN 24.1 mg/dL (7-18); CALCIUM 8.1 mg/dL (8.5-10.1); CREATININE 0.9 mg/dL (0.55-1.3); PHOSPHOROUS 2.2 mg/dL (2.5-4.9); POTASSIUM 4.1 mmol/L (3.5-5.1)
[2019-06-23] MEDS: AMOX TR/POT CLAV 875MG/125MG TABLETS (FP) PO SCH (07:53)
[2019-06-23] MEDS ORDERED: LISINOPRIL 10 MG TABLET (FP) PO SCH (08:30)
[2019-06-23] MEDS ORDERED: NAPH,MB-DB/K PH,MBDB POWDER PACKET PO ONE (08:30)
--- NOTE | 2019-06-23 09:12 | PN ---
Progress Note (short form) - Note Progress Note: 78yo M s/p LLE open thrombectomy POD 2, pt seen and examined at bedside in ICU. Currently on heparin drip. Pt states that groin pain is improved. Pt ambulated yesterday. Denies fever, chills, n/v, cp, sob. Last Vital Signs Temp Pulse Resp BP Pulse Ox 97.6 F 74 18 177/59 H 100 06/23/19 06:00 06/23/19 08:00 06/23/19 08:00 06/23/19 08:00 06/22/19 21:00 CBC, BMP 06/23/19 05:30 06/23/19 05:30 PE Gen: A&O x3 Resp: breathing comfortably LLE: groin incision clean, dressing soaked and changed at bedside. No active bleeding. Dopplarable pulses PT and DP. No edema. Problem List - Problems (1) Femoral-popliteal bypass graft occlusion, left Assessment/Plan: Plan -will follow up with Dr. Rodriguez for plan on discharge and switching to oral anticoagulation. -oob/ambulate -regular diet Code(s): T82.898A - OT COMPLICATION OF VASCULAR PROSTH DEV/GRFT, INIT
[2019-06-23] MEDS: ASPIRIN 81 MG CHEWABLE TABLETS PO SCH (09:39)
[2019-06-23] MEDS: PANTOPRAZOLE SODIUM 40 MG VIAL IVPUSH SCH (09:40)
--- NOTE | 2019-06-23 10:40 | PN ---
Progress Note, Physician History of Present Illness: AWAKE, ALERT NO C/O FOOT PAIN NOW ON ORAL ANTIBIOTICS MRI NEGATIVE FOR OSTEOMYELITIS - Current Medication List Current Medications: Active Medications Acetaminophen (Tylenol -) 650 mg PO Q4H PRN PRN Reason: PAIN OR FEVER Amoxicillin/Clavulanate Potassium (Augmentin - 875mg Tablet) 1 tab PO BID@0800, 1730 [facility] Last Admin: 06/23/19 07:53 Dose: 1 tab Aspirin (Asa -) 81 mg PO DAILY [facility] Last Admin: 06/23/19 09:39 Dose: 81 mg Atorvastatin Calcium (Lipitor -) 40 mg PO HS [facility] Last Admin: 06/22/19 21:51 Dose: 40 mg Fentanyl (Sublimaze Injection -) 25 mcg IVPUSH [id number] PRN PRN Reason: PAIN-PACU ORDER X 4 DOSES ONLY Heparin Sodium (Porcine) (Heparin -) 1,000 unit IVPUSH PRN PRN PRN Reason: Heparin Heparin Sodium (Porcine) (Heparin -) 5,000 unit IVPUSH PRN PRN PRN Reason: Heparin Heparin Sodium (Porcine) 25, (000 unit/ Sodium Chloride) 500 mls @ 20 mls/hr IV TITR [facility]; Protocol Last Titration: 06/23/19 07:39 Dose: 800 unit/hr, 16 mls/hr Lisinopril (Prinivil) 20 mg PO DAILY [facility] Last Admin: 06/23/19 09:39 Dose: 20 mg Ondansetron HCl (Zofran Injection) 4 mg IVPUSH Q6H PRN PRN Reason: NAUSEA AND/OR VOMITING Pantoprazole Sodium (Protonix Iv) 40 mg IVPUSH DAILY [facility] Last Admin: 06/23/19 09:40 Dose: 40 mg - Objective Vital Signs: Vital Signs Temperature 97.6 F 06/23/19 06:00 Pulse Rate 74 06/23/19 08:00 Respiratory Rate 18 06/23/19 08:00 Blood Pressure 177/59 H 06/23/19 08:00 O2 Sat by Pulse Oximetry (%) 100 06/22/19 21:00 Constitutional: Yes: No Distress Eyes: Yes: Conjunctiva Clear Cardiovascular: Yes: Regular Rate and Rhythm, S1, S2 Respiratory: Yes: CTA Bilaterally Gastrointestinal: Yes: Normal Bowel Sounds Extremities: Yes: Other (ERYTHEMA OF TOES NEARLY ALL RESOLVED) Edema: No Labs: CBC, BMP 06/23/19 05:30 06/23/19 05:30 INR, PTT INR 1.06 (0.83-1.09) 06/19/19 06:45 Assessment/Plan CELLULITIS L 2ND/ 3RD TOES NEARLY RESOLVED PERIPHERAL VASCULAR DISEASE NOW ON PO ANTIBIOTICS CONTINUE ADDITIONAL 48H
[2019-06-23] MEDS ORDERED: APIXABAN 5 MG TABLET PO ONE (12:54)
--- NOTE | 2019-06-23 12:54 | PN ---
Teaching Attending Note Name of Resident: José Franz ATTENDING PHYSICIAN STATEMENT I saw and evaluated the patient. I reviewed the resident's note and discussed the case with the resident. I agree with the resident's findings and plan as documented. SUBJECTIVE: No fever or chills. No pain , no SOB. no DONOVAN , no change in vision OBJECTIVE: NAD Cv: RRR Lungs: CTAB Ext: no edema or erythema on legs. DP 2+ on L and 1+ on R. PT 1+ on L and un- palpable on R. PT not felt b/l. warm feet L foot with tender 2nd and 3rd digits but no erythema. non draining ulcers on lateral aspect of 2nd and 3rd digits. nl sensation and mobility of feet ASSESSMENT AND PLAN: 78 y/o man with h/o PVD, s/p baloonplasties, HTN, HLP, possible COPD, MRSA infection in R axilla, OM with MRSA , prostate cancer s/p Rtx , who presneted with pain in L toes and was found to have cellulitis 1- Cellullitis in R foot toes: No OM on MRI. - Cont Augmentin x 2 more days 2- PVD: s/p thrombectomy of L leg bypass, stent placement L popliteal artery, and angioplasty of L tibial - Cont ASA - cont lipitor at increased dose - dc heparin and start eliquis. dose confirmed with Dr. parmar, 5 BID - risks of bleed with eliquis was explained ( including epidural bleed ). pt agrees to eliquis 3- HTN: increase lisinopril dc home today
--- NOTE | 2019-06-23 13:07 | PN ---
Teaching Attending Note Name of Resident: Prashanth Mac ATTENDING PHYSICIAN STATEMENT I saw and evaluated the patient. I reviewed the resident's note and discussed the case with the resident. I agree with the resident's findings and plan as documented. SUBJECTIVE: Patient seen and examined in the ICU. Pain controlled. Denies shortness of breath or chest pain. OBJECTIVE: Intake & Output 06/20/19 06/21/19 06/22/19 06/23/19 23:59 23:59 23:59 23:59 Intake Total 1300 1800 1026 354 Output Total 200 1400 1150 Balance 1300 1600 -374 -796 Weight 138 lb 107 lb 1.6 oz Last Vital Signs Temp Pulse Resp BP Pulse Ox 98.3 F 70 16 165/57 L 100 06/23/19 10:00 06/23/19 12:00 06/23/19 12:00 06/23/19 12:00 06/23/19 09:00 Active Medications Acetaminophen (Tylenol -) 650 mg PO Q4H PRN PRN Reason: PAIN OR FEVER Amoxicillin/Clavulanate Potassium (Augmentin - 875mg Tablet) 1 tab PO BID@0800, 1730 [facility] Last Admin: 06/23/19 07:53 Dose: 1 tab Apixaban (Eliquis -) 5 mg PO ONCE ONE Stop: 06/23/19 12:55 Aspirin (Asa -) 81 mg PO DAILY [facility] Last Admin: 06/23/19 09:39 Dose: 81 mg Atorvastatin Calcium (Lipitor -) 40 mg PO HS [facility] Last Admin: 06/22/19 21:51 Dose: 40 mg Lisinopril (Prinivil) 20 mg PO DAILY [facility] Last Admin: 06/23/19 09:39 Dose: 20 mg Ondansetron HCl (Zofran Injection) 4 mg IVPUSH Q6H PRN PRN Reason: NAUSEA AND/OR VOMITING Pantoprazole Sodium (Protonix Iv) 40 mg IVPUSH DAILY [facility] Last Admin: 06/23/19 09:40 Dose: 40 mg Gen: NAD at rest Heart: RRR Lung: decreased breath sounds at the bases Abd: soft, nontender Ext: no edema, dressings intact Laboratory Results - last 24 hr 06/22/19 06/23/19 06/23/19 13:43 05:30 05:30 WBC RBC Hgb Hct MCV MCH MCHC RDW Plt Count MPV Absolute Neuts (auto) Neutrophils % Lymphocytes % Monocytes % Eosinophils % Basophils % Nucleated RBC % PTT (Actin FS) 61.2 H 49.5 H Sodium 143 Potassium 4.1 Chloride 108 H Carbon Dioxide 31 Anion Gap 5 L BUN 24.1 H Creatinine 0.9 Est GFR (CKD-EPI)AfAm 94.48 Est GFR (CKD-EPI)NonAf 81.52 Random Glucose 92 Calcium 8.1 L Phosphorus 2.2 L Magnesium 2.0 06/23/19 05:30 WBC 6.0 RBC 3.70 L Hgb 12.1 Hct 35.1 L MCV 94.7 MCH 32.8 MCHC 34.6 RDW 14.5 Plt Count 131 L MPV 9.8 Absolute Neuts (auto) 4.0 Neutrophils % 67.4 D Lymphocytes % 17.6 D Monocytes % 10.2 Eosinophils % 3.9 D Basophils % 0.9 Nucleated RBC % 0 PTT (Actin FS) Sodium Potassium Chloride Carbon Dioxide Anion Gap BUN Creatinine Est GFR (CKD-EPI)AfAm Est GFR (CKD-EPI)NonAf Random Glucose Calcium Phosphorus Magnesium ASSESSMENT AND PLAN: Thrombosed fem-pop bypass left leg s/p Open Thrombectomy/Stent placement/Angioplasty PAD Hyperlipidemia HTN Prostate Ca - AC per surgery - ASA - pain control - incentive spirometry - DC planning Dr Oviedo
--- NOTE | 2019-06-23 13:14 | PN ---
Physical Exam: SUBJECTIVE: Patient seen and examined at bedside in the ICU. Pain is well controlled. No acute events overnight. OBJECTIVE: Vital Signs Period Temp Pulse Resp BP Sys/Thayer Pulse Ox Last 24 Hr 97.6 F-98.3 F 70-77 13-73 116-177/41-103 100-100 GENERAL: The patient is awake, alert, and fully oriented, in no acute distress. HEAD: Normal with no signs of trauma. EYES: PERRL, extraocular movements intact, sclera anicteric, conjunctiva clear. No ptosis. ENT: Ears normal, nares patent, oropharynx clear without exudates, moist mucous membranes. NECK: Trachea midline, full range of motion, supple. LUNGS: Breath sounds equal, clear to auscultation bilaterally, no wheezes, no crackles, no accessory muscle use. HEART: Regular rate and rhythm, S1, S2 without murmur, rub or gallop. ABDOMEN: Soft, nontender, nondistended, normoactive bowel sounds, no guarding, no rebound, no hepatosplenomegaly, no masses. EXTREMITIES: 2+ pulses, warm, well-perfused, no edema. NEUROLOGICAL: Cranial nerves II through XII grossly intact. Normal speech, gait not observed. PSYCH: Normal mood, normal affect. SKIN: Warm, dry, normal turgor, no rashes or lesions noted Laboratory Results - last 24 hr 06/22/19 06/23/19 06/23/19 13:43 05:30 05:30 WBC RBC Hgb Hct MCV MCH MCHC RDW Plt Count MPV Absolute Neuts (auto) Neutrophils % Lymphocytes % Monocytes % Eosinophils % Basophils % Nucleated RBC % PTT (Actin FS) 61.2 H 49.5 H Sodium 143 Potassium 4.1 Chloride 108 H Carbon Dioxide 31 Anion Gap 5 L BUN 24.1 H Creatinine 0.9 Est GFR (CKD-EPI)AfAm 94.48 Est GFR (CKD-EPI)NonAf 81.52 Random Glucose 92 Calcium 8.1 L Phosphorus 2.2 L Magnesium 2.0 06/23/19 05:30 WBC 6.0 RBC 3.70 L Hgb 12.1 Hct 35.1 L MCV 94.7 MCH 32.8 MCHC 34.6 RDW 14.5 Plt Count 131 L MPV 9.8 Absolute Neuts (auto) 4.0 Neutrophils % 67.4 D Lymphocytes % 17.6 D Monocytes % 10.2 Eosinophils % 3.9 D Basophils % 0.9 Nucleated RBC % 0 PTT (Actin FS) Sodium Potassium Chloride Carbon Dioxide Anion Gap BUN Creatinine Est GFR (CKD-EPI)AfAm Est GFR (CKD-EPI)NonAf Random Glucose Calcium Phosphorus Magnesium Active Medications Generic Name Dose Route Start Last Admin Trade Name Freq PRN Reason Stop Dose Admin Acetaminophen 650 mg 06/21/19 20:05 Tylenol - PO Q4H PRN PAIN OR FEVER Amoxicillin/Clavulanate Potassium 1 tab 06/22/19 17:30 06/23/19 07:53 Augmentin - 875mg Tablet PO 1 tab BID@0800,1730 BRODY Administration Apixaban 5 mg 06/23/19 12:54 Eliquis - PO 06/23/19 12:55 ONCE ONE Aspirin 81 mg 06/22/19 10:00 06/23/19 09:39 Asa - PO 81 mg DAILY BRODY Administration Atorvastatin Calcium 40 mg 06/21/19 22:00 06/22/19 21:51 Lipitor - PO 40 mg HS BRODY Administration Lisinopril 20 mg 06/23/19 08:30 06/23/19 09:39 Prinivil PO 20 mg DAILY BRODY Administration Ondansetron HCl 4 mg 06/21/19 19:39 Zofran Injection IVPUSH Q6H PRN NAUSEA AND/OR VOMITING Pantoprazole Sodium 40 mg 06/22/19 10:00 06/23/19 09:40 Protonix Iv IVPUSH 40 mg DAILY BRODY Administration ASSESSMENT/PLAN: Pt is a 78 y/o M with a past medical history of prostate cancer (s/p radiation therepy), PAD (s/p multiple balloonplasties in b/l popliteal artery and iliac arteries), and HTN who presented initially to [facility] due to cellulites; was found to have an occluded Left femoral-popliteal bypass graft. #CARDIO: HTN, HLD -Resume Lisinopril, ASA, and Lipitor #VASC-> PVD -Duplex LLE: Occluded right SFA with weak distal flow. 2. Occluded left femoropopliteal bypass graft with weak distal flow. -s/p open thrombectomy left leg bypass. Placement covered stents popliteal artery. Angioplasty tibial artery -Doppler Checks were benign with pulse present. -PTT 76 and rpt 61. -start eliquis today ID - off vanc and ceftriaxone #FEN LR@125cc/hr Monitor Electrolytes Na Controlled Diet #DVT ppx: -HEP gtt Dispo: Plan to d/c home per surgery. Visit type - Emergency Visit Emergency Visit: No - New Patient This patient is new to me today: No - Critical Care Critical Care patient: Yes Total Critical Care Time (in minutes): 35 Critical Care Statement: The care of this patient involved high complexity decision making to prevent further life threatening deterioration of the patient 's condition and/or to evaluate & treat vital organ system(s) failure or risk of failure. ATTENDING PHYSICIAN STATEMENT I saw and evaluated the patient. I reviewed the resident's note and discussed the case with the resident. I agree with the resident's findings and plan as documented. SUBJECTIVE: OBJECTIVE: ASSESSMENT AND PLAN:
[2019-06-23 13:40] VITALS: PULSE 74; TEMP 98.6
[2019-06-23 14:11] VITALS: BP 143/69
--- NOTE | 2019-06-23 14:28 | DS ---
Physical Exam: SUBJECTIVE: Patient seen and examined. Pt. denies any new complaints OBJECTIVE: Vital Signs Period Temp Pulse Resp BP Sys/Thayer Pulse Ox Last 24 Hr 97.6 F-98.6 F 70-77 13-73 129-177/41-103 100-100 PHYSICAL EXAM GENERAL: The patient is awake, alert, and fully oriented, in no acute distress. HEAD: Normal with no signs of trauma. ENT: oropharynx clear without exudates, moist mucous membranes. LUNGS: Breath sounds equal, clear to auscultation bilaterally, no wheezes, no crackles, no accessory muscle use. HEART: Regular rate and rhythm, S1, S2 without murmur, rub or gallop. ABDOMEN: Soft, nontender, nondistended, normoactive bowel sounds, no guarding, no rebound EXTREMITIES: 2+ on L 1+ on R pulses, warm, perfused, no edema.Left second shortened with wound/ fisure over dorsum of IP joint with fribrinous tissue, Chronic skin changes throughout 2nd, 3rd and 4th toes with tissue maceration between extending into 1st, 2nd and 3rd web spaces. no foul odor or active d/c. Right Foot without lesion or wounds. PSYCH: Normal mood, normal affect. LABS Laboratory Results - last 24 hr 06/23/19 06/23/19 06/23/19 05:30 05:30 05:30 WBC 6.0 RBC 3.70 L Hgb 12.1 Hct 35.1 L MCV 94.7 MCH 32.8 MCHC 34.6 RDW 14.5 Plt Count 131 L MPV 9.8 Absolute Neuts (auto) 4.0 Neutrophils % 67.4 D Lymphocytes % 17.6 D Monocytes % 10.2 Eosinophils % 3.9 D Basophils % 0.9 Nucleated RBC % 0 PTT (Actin FS) 49.5 H Sodium 143 Potassium 4.1 Chloride 108 H Carbon Dioxide 31 Anion Gap 5 L BUN 24.1 H Creatinine 0.9 Est GFR (CKD-EPI)AfAm 94.48 Est GFR (CKD-EPI)NonAf 81.52 Random Glucose 92 Calcium 8.1 L Phosphorus 2.2 L Magnesium 2.0 HOSPITAL COURSE: Date of Admission:06/18/19 Date of Discharge: 06/23/19 Pt. is a 78 y.o. M w/ PMHx. of PVD( s/p multiple balloonplasties in b/l popliteal artery and iliac arteries), HTN, Prostate Ca(s/p radiation treatment) , COPD, HLD, Axillary Abcess (MRSA) and OM (MRSA) presenting after failed outpatient management of left second and third toe cellulitis. Pt. 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 Consult to Dr. Rodriguez appreciated. Embolectomy of the left lower extremity with stent placement was performed to good effect. ICU consult appreciated. Discussion of cessation smoking was reinforced. Blood cultures and wound cultures were sent without growth. Pt. was started on Vancomycin and Ceftriaxone and eventually de-escalated to PO Augmentin after final culture reports. ID consult to Dr. Galaviz appreciated. Medication adjustments and hospital follow-up were made as detailed below. Hospital course was discussed and agreed upon with Pt., family and medical staff. Discharge Summary Problems reviewed: Yes Reason For Visit: ONYCHOMYCOSIS/CELLULITIS/INFECTION OF TOE Current Active Problems Cellulitis (Acute) Femoral-popliteal bypass graft occlusion, left (Acute) Toe infection (Acute) Onychomycosis (Chronic) Condition: Improved - Instructions Diet, Activity, Other Instructions: You were admitted for an infection of your 2nd, 3rd and 4th left toes. We imaged took blood cultures and wound cultures and found that the infection is NOT MRSA. We treated your infection with IV antibiotics. When we imaged your lower extremities we found that there was blockages along the arteries supplying your left lower extremity. You underwent a procedure to remove the blockage and was monitored in the ICU. Please STOP smoking as this will lead to the redevelopment of the blockage at a faster rate. We started you on some new medications: Eliquis 5 mg TWICE a DAY -This is a blood thinner. Please take your next dose at 1 AM(04/24/19). You can push the hour ahead on every other dose to goet to 8am and 8pm. Aspirin 81 mg ONCE a DAY Augmentin TWICE a DAY Please take your first pill at 8pm 06/23/19 and then every 12 hours until the pills run out. We have increased your Lisinopril to 20mg ONCE a DAY, because your blood pressure was too high We have increased your Lipitor to 40mg ONCE a DAY Please resume all your other medications as prescribed. Please follow up with Dr. Rodriguez within 1 week for Wound Care. Please call ) to arrange appointments. Please follow up with your PCP, Dr. Phillip, within 1 week Please return to the ED if you are having fevers, chills, bleeding that wont stop (please check your gums, urine and stool every day), headache that wont go away, increased tiredness or fatigue or any other concerning symptoms. Referrals: Bird Phillip [Primary Care Provider] - 1 Week Valdemar Rodriguez MD [Staff Physician] - Disposition: VNS/HOME HEALTH CARE - Home Medications Comprehensive Discharge Medication List: Ambulatory Orders Aspirin [ASA -] 81 mg PO DAILY #0 tab.chew 06/02/13 Amoxicillin/Potassium Clav [Augmentin 875-125 Tablet] 1 each PO BID #5 tablet Apixaban [Eliquis -] 5 mg PO BID #60 tablet 06/23/19 Atorvastatin Ca [Lipitor] 40 mg PO HS #30 tablet 06/23/19 Lisinopril [Prinivil] 20 mg PO DAILY #30 tablet 06/23/19 - Discharge Referral Referred to [facility] No ATTENDING PHYSICIAN STATEMENT I saw and evaluated the patient. I reviewed the resident's note and discussed the case with the resident. I agree with the resident's findings and plan as documented. SUBJECTIVE: OBJECTIVE: ASSESSMENT AND PLAN:
--- NOTE | 2019-06-23 19:03 | PATH ---
Surgical Pathology Report Patient Name: SABRINA GRIDER Med. Rec. #: [id number] /Age/Gender: 1940 (Age: 78) / M Account: [id number] Location: ICU CRUDE TESTER Taken: 06/21/2019 Received: 06/22/2019 Reported: 06/23/2019 Physicians: Charley White M.D. Specimen(s) Received CLOTS Clinical History Thrombosed fem-pop bypass left leg Final Diagnosis CLOT, LEG, LEFT, OPEN SUCTION THROMBECTOMY: BLOOD/FIBRIN CLOT. Electronically Signed Danae Bay M.D. Gross Description Received in formalin labeled "clot" are multiple fragments of blood clot measuring 3 x 2 x 1.4 cm in aggregate. Computer Forensics Investigator sections are submitted in one cassette. MLSZ/06/22/2019 sanml/06/22/2019
--- NOTE | 2019-06-27 11:41 | OP ---
DATE OF OPERATION: 06/21/2019 PROCEDURE: Open thrombectomy, left leg bypass graft, angiography with angioplasty of the popliteal and tibial arteries, placement of covered stents in the popliteal artery. PREOPERATIVE DIAGNOSIS: Thrombosed femoropopliteal bypass graft, left leg, with ischemic foot. POSTOPERATIVE DIAGNOSIS: Thrombosed femoropopliteal bypass graft, left leg, with ischemic foot with distal bypass and popliteal stenosis. ANESTHESIA: General. ANESTHESIA: Pili Ornelas MD OPERATIVE FINDINGS: The left leg prosthetic femoral popliteal bypass was thrombosed. Following thrombectomy, re-stenosis at the distal anastomosis and popliteal artery were identified. The peroneal artery was patent with runoff to the ankle and collaterals to the foot. Both anterior tibial and posterior tibial arteries were occluded. OPERATIVE PROCEDURE: Following routine patient identification with side and site verification, intravenous sedation was established. General anesthesia was induced. The left leg was prepped with ChloraPrep. Time-out was performed. Incision was made in the left thigh over the bypass graft, which had been localized with duplex imaging. Subcutaneous tissues were divided using cautery for hemostasis. The muscle fascia was incised and the sartorius muscle reflected posteriorly. The bypass graft was then dissected free from the surrounding tissues then encircled with Vessel Loop. An angle tip wire and catheter were then advanced distally toward the anastomosis. Angiography was then performed, which showed an area of dilatation in the distal graft at the distal anastomosis and no distal flow. A wire was then advanced through the anastomosis and into the popliteal artery and distally into the peroneal artery. A catheter was advanced over the wire and used to perform angiography of the peroneal artery. A 0.018-inch wire was then re-introduced through the catheter. The distal popliteal artery and peroneal artery were then dilated with a 4-mm balloon. Additional thrombectomy was then performed with an [id number] thrombectomy catheter to remove residual thrombus from the distal graft especially in the area of dilatation. Repeat imaging revealed continued stenosis of the popliteal artery , and decision was made to place stents. The proximal portion of the popliteal artery was dilated with a 5-mm balloon. A 6-mm x 5-cm Viabahn stent was then placed from the proximal popliteal artery into the bypass graft. A 7 x 37-mm Lifestent was then placed from the proximal end of the Viabahn to the bypass graft and the proximal area post dilated with an 8-mm balloon. Completion imaging showed a patent distal anastomosis through the stents with runoff into the peroneal artery and no evidence of residual thrombus. The graft was filled with heparin solution. The graft incision was closed with running suture of 6-0 Prolene, and clamps were then removed. Catholic of flow down the leg and return of the Doppler signal in both the dorsalis pedis and posterior tibial arteries. Surgicel was applied to control any bleeding from the suture line. Subcutaneous tissue were irrigated, and the incision was closed with interrupted suture of 3-0 Vicryl in the subcutaneous tissues and skin chilo. Sterile dressings were applied, and the patient was taken to the recovery room in stable condition. Sharla KURTZ/[id number] MTDD
== END 2019-06-23 15:38 | disposition home health service (06) | DRG 253 ==
LOC: JER 07:34 → JERBED 08:53 → J8W 11:25 → JICU 06-21 21:34
PROVIDERS: ADMIT Internal Medicine; ATTEND Internal Medicine
PROC: 041L0ZL Bypass Left Femoral Artery to Popliteal Artery, Open Approach (ICD-10-PCS; 2019-06-21)
PROC: 047 Lower Arteries, Dilation (ICD-10-PCS; 2019-06-21)
PROC: 04CL0ZZ Extirpation of Matter from Left Femoral Artery, Open Approach (ICD-10-PCS; principal; 2019-06-21 17:00)
DX: T82.868A Thrombosis due to vascular prosthetic devices, implants and grafts, initial encounter (principal); L03.116 Cellulitis of left lower limb; I10 Essential (primary) hypertension; F17.210 Nicotine dependence, cigarettes, uncomplicated; E78.5 Hyperlipidemia, unspecified; L08.9 Local infection of the skin and subcutaneous tissue, unspecified; Y83.9 Surgical procedure, unspecified as the cause of abnormal reaction of the patient, or of later complication, without mention of misadventure at the time of the procedure; B35.1 Tinea unguium; I73.9 Peripheral vascular disease, unspecified
CPT/HCPCS: 36415; 73630-TC-LT; 73718-TC-LT; 75635-TC; 76000-TC-FY; 80048; 80053; 80061; 81003; 83721; 83735; 84100; 85025; 85027; 85610; 85651; 85730; 86850; 86900; 86901; 87040; 87070; 87077; 87081; 87086; 87186; 87205; 88304-TC; 93005; 93010; 93925-TC; 94760; 97116-GP; 97161-GP; 99284-25; G0480; J0131; J1644

== ENCOUNTER 2022-03-14 10:58 | Inpatient (IN) | payer OTHER ==
[2022-03-14] MEDS ORDERED: VANCOMYCIN 1 GM in D5W (PRE-DOCKED) 1,000 MG/250 ML IVPB ONE (12:49)
[2022-03-14 12:54] LABS: EOS % 1.3 % (0-4.5); HEMATOCRIT 35.8 % (35.4-49); LYMPH % 22.3 % (8-40); MCH 28.6 pg (25.7-33.7); MCHC 33.5 g/dl (32.0-35.9); MEAN CELL VOLUME 85.5 fl (80-96); MEAN PLT VOLUME 8.8 fl (7.5-11.1); MONO % 9.9 % (3.8-10.2); NEUT % 65.5 % (42.8-82.8); PLATELET COUNT 147 10^3/uL (134-434); RBC 4.18 M/mm3 (4.00-5.60); WHITE BLOOD COUNT 5.3 K/mm3 (4.0-10.0)
[2022-03-14] MEDS ORDERED: PIPERACILLIN/TAZOB 3.375 GM 3.375 GM in DEXTROSE 5%-WATER - 50 ML IVPB ONE (12:54)
[2022-03-14 12:59] LABS: INR 1.23 (0.83-1.09); PROTHROMBIN TIME (PATIENT) 14.2 SEC (9.7-13.0)
[2022-03-14 13:02] LABS: ACTIVATED PTT 31.5 SECONDS (25.2-36.5)
[2022-03-14 13:11] LABS: CALCIUM 8.5 mg/dL (8.5-10.1)
[2022-03-14 13:12] LABS: ALBUMIN 3.7 g/dl (3.4-5.0); BLOOD UREA NITROGEN 25.4 mg/dL (7-18)
[2022-03-14 13:15] LABS: CREATININE 1.2 mg/dL (0.55-1.3)
[2022-03-14 13:16] LABS: BILIRUBIN,TOTAL 0.4 mg/dL (0.2-1); TOT PROT 6.9 g/dl (6.4-8.2)
[2022-03-14] MEDS ORDERED: VANCOMYCIN 1 GRAM (PRE-DOCKED) 1,000 MG/250 ML BAG IVPB ONE (13:32)
[2022-03-14 13:42] LABS: ERYTHROCYTE SEDIMENTATION RATE 34 mm/hr (0-20)
[2022-03-14] MEDS ORDERED: ACETAMINOPHEN 325 MG TABLET (FP) PO PRN (16:18)
[2022-03-14] MEDS ORDERED: PIPERACILLIN/TAZOB 3.375 GM 3.375 GM/50 ML BAG IVPB ONE (17:07)
[2022-03-15] MEDS ORDERED: ATORVASTATIN CA 40 MG TABLET (FP) ONE ×2 (01:31→22:25)
[2022-03-15] MEDS ORDERED: PIPERACILLIN/TAZOB 2.25 GM 2.25 GM/50 ML BAG IVPB ONE ×2 (01:31→10:09)
[2022-03-15] MEDS ORDERED: APIXABAN 5 MG TABLET ONE ×2 (01:31→22:25)
[2022-03-15] MEDS: ATORVASTATIN CA 40 MG TABLET (FP) PO SCH ×2 (01:45→22:29)
[2022-03-15] MEDS: PIPERACILLIN/TAZOB 2.25 GM 2.25 GM in DEXTROSE 5%-WATER - 50 ML IVPB SCH ×3 (01:45→10:18)
[2022-03-15] MEDS: APIXABAN 5 MG TABLET PO SCH ×3 (01:45→22:29)
[2022-03-15 07:36] LABS: BASO % 1.1 % (0-2.0); EOS % 2.7 % (0-4.5); HEMATOCRIT 37.6 % (35.4-49); HEMOGLOBIN 12.5 GM/dL (11.7-16.9); MCH 28.4 pg (25.7-33.7); MCHC 33.2 g/dl (32.0-35.9); MEAN CELL VOLUME 85.5 fl (80-96); MEAN PLT VOLUME 9.1 fl (7.5-11.1); MONO % 10.1 % (3.8-10.2); NEUT % 65.1 % (42.8-82.8); PLATELET COUNT 138 10^3/uL (134-434); RDW 16.9 % (11.9-15.9); WHITE BLOOD COUNT 5.5 K/mm3 (4.0-10.0)
[2022-03-15 08:01] LABS: ALBUMIN 3.4 g/dl (3.4-5.0); CALCIUM 8.8 mg/dL (8.5-10.1)
[2022-03-15 08:02] LABS: BILIRUBIN,TOTAL 0.5 mg/dL (0.2-1); TOT PROT 6.6 g/dl (6.4-8.2)
[2022-03-15 08:04] LABS: CREATININE 1.2 mg/dL (0.55-1.3)
[2022-03-15] MEDS ORDERED: APIXABAN 2.5 MG TABLET ONE (10:08)
[2022-03-15] MEDS ORDERED: LISINOPRIL 20 MG TABLET ONE (10:08)
[2022-03-15] MEDS ORDERED: ASPIRIN 81 MG CHEWABLE TABLETS ONE (10:09)
[2022-03-15] MEDS: ASPIRIN 81 MG CHEWABLE TABLETS PO SCH (10:18)
[2022-03-15] MEDS: LISINOPRIL 10 MG TABLET PO SCH (10:18)
[2022-03-15] MEDS ORDERED: PIPERACILLIN/TAZOB 3.375 GM 3.375 GM/50 ML BAG IVPB ONE ×2 (18:35→23:39)
[2022-03-15] MEDS: PIPERACILLIN/TAZOB 3.375 GM 3.375 GM in DEXTROSE 5%-WATER - 50 ML IVPB SCH (18:40)
[2022-03-16] MEDS ORDERED: DEXTROSE 5%-WATER - 50 ML IVPB ONE ×3 (01:30→17:38)
[2022-03-16] MEDS ORDERED: PIPERACILLIN/TAZOBACTAM 3.375 GM VIAL IVPB ONE ×3 (01:30→17:38)
[2022-03-16 01:49] VITALS: BMI 22.9
[2022-03-16] MEDS: PIPERACILLIN/TAZOB 3.375 GM 3.375 GM in DEXTROSE 5%-WATER - 50 ML IVPB SCH ×3 (02:16→17:50)
[2022-03-16] MEDS: PIPERACILLIN/TAZOB 2.25 GM 2.25 GM in DEXTROSE 5%-WATER - 50 ML IVPB SCH (02:52)
[2022-03-16] MEDS: LISINOPRIL 10 MG TABLET PO SCH (10:16)
[2022-03-16] MEDS: APIXABAN 5 MG TABLET PO SCH ×2 (10:16→22:35)
[2022-03-16] MEDS: ASPIRIN 81 MG CHEWABLE TABLETS PO SCH (10:17)
[2022-03-16] MEDS: ATORVASTATIN CA 40 MG TABLET (FP) PO SCH (22:35)
[2022-03-17] MEDS ORDERED: PIPERACILLIN/TAZOBACTAM 3.375 GM VIAL IVPB ONE ×3 (02:26→16:47)
[2022-03-17] MEDS ORDERED: DEXTROSE 5%-WATER - 50 ML IVPB ONE ×3 (02:26→16:47)
[2022-03-17] MEDS: PIPERACILLIN/TAZOB 3.375 GM 3.375 GM in DEXTROSE 5%-WATER - 50 ML IVPB SCH ×3 (02:41→17:30)
[2022-03-17] MEDS: LISINOPRIL 10 MG TABLET PO SCH (09:26)
[2022-03-17] MEDS: ASPIRIN 81 MG CHEWABLE TABLETS PO SCH (09:26)
[2022-03-17] MEDS: APIXABAN 5 MG TABLET PO SCH ×2 (09:26→22:23)
[2022-03-17 09:29] LABS: EOS % 2.4 % (0-4.5); HEMATOCRIT 40.6 % (35.4-49); HEMOGLOBIN 13.3 GM/dL (11.7-16.9); LYMPH % 24.1 % (8-40); MCH 28.1 pg (25.7-33.7); MCHC 32.7 g/dl (32.0-35.9); MEAN PLT VOLUME 9.4 fl (7.5-11.1); MONO % 9.5 % (3.8-10.2); PLATELET COUNT 163 10^3/uL (134-434); RBC 4.73 M/mm3 (4.00-5.60); WHITE BLOOD COUNT 5.7 K/mm3 (4.0-10.0)
[2022-03-17 09:51] LABS: CALCIUM 8.6 mg/dL (8.5-10.1)
[2022-03-17 09:52] LABS: ALBUMIN 3.5 g/dl (3.4-5.0)
[2022-03-17 09:55] LABS: CREATININE 1.1 mg/dL (0.55-1.3)
[2022-03-17 09:57] LABS: BILIRUBIN,TOTAL 0.8 mg/dL (0.2-1); TOT PROT 6.9 g/dl (6.4-8.2)
[2022-03-17] MEDS: PIPERACILLIN/TAZOB 2.25 GM 2.25 GM in DEXTROSE 5%-WATER - 50 ML IVPB SCH (18:29)
[2022-03-17] MEDS: ATORVASTATIN CA 40 MG TABLET (FP) PO SCH (22:23)
[2022-03-18] MEDS ORDERED: PIPERACILLIN/TAZOBACTAM 3.375 GM VIAL IVPB ONE ×3 (01:12→17:24)
[2022-03-18] MEDS ORDERED: DEXTROSE 5%-WATER - 50 ML IVPB ONE ×3 (01:12→17:24)
[2022-03-18] MEDS: PIPERACILLIN/TAZOB 3.375 GM 3.375 GM in DEXTROSE 5%-WATER - 50 ML IVPB SCH ×3 (01:21→17:28)
[2022-03-18] MEDS: LISINOPRIL 10 MG TABLET PO SCH (10:34)
[2022-03-18] MEDS: ASPIRIN 81 MG CHEWABLE TABLETS PO SCH (10:34)
[2022-03-18] MEDS: APIXABAN 5 MG TABLET PO SCH ×2 (10:34→21:55)
[2022-03-18] MEDS: ATORVASTATIN CA 40 MG TABLET (FP) PO SCH (21:55)
[2022-03-19] MEDS ORDERED: PIPERACILLIN/TAZOBACTAM 3.375 GM VIAL IVPB ONE ×3 (01:02→16:49)
[2022-03-19] MEDS ORDERED: DEXTROSE 5%-WATER - 50 ML IVPB ONE ×3 (01:02→16:49)
[2022-03-19] MEDS: PIPERACILLIN/TAZOB 3.375 GM 3.375 GM in DEXTROSE 5%-WATER - 50 ML IVPB SCH ×3 (01:35→17:01)
[2022-03-19] MEDS: ASPIRIN 81 MG CHEWABLE TABLETS PO SCH (11:17)
[2022-03-19] MEDS: LISINOPRIL 10 MG TABLET PO SCH (11:17)
[2022-03-19] MEDS: APIXABAN 5 MG TABLET PO SCH ×2 (11:17→22:27)
[2022-03-19] MEDS: ATORVASTATIN CA 40 MG TABLET (FP) PO SCH (22:27)
[2022-03-20] MEDS ORDERED: DEXTROSE 5%-WATER - 50 ML IVPB ONE ×3 (01:13→16:57)
[2022-03-20] MEDS ORDERED: PIPERACILLIN/TAZOBACTAM 3.375 GM VIAL IVPB ONE ×3 (01:13→16:57)
[2022-03-20] MEDS: PIPERACILLIN/TAZOB 3.375 GM 3.375 GM in DEXTROSE 5%-WATER - 50 ML IVPB SCH ×3 (01:26→17:41)
[2022-03-20 09:03] LABS: BASO % 1.2 % (0-2.0); EOS % 3.2 % (0-4.5); HEMATOCRIT 38.2 % (35.4-49); HEMOGLOBIN 12.7 GM/dL (11.7-16.9); LYMPH % 23.2 % (8-40); MCH 28.6 pg (25.7-33.7); MCHC 33.3 g/dl (32.0-35.9); MEAN PLT VOLUME 9.6 fl (7.5-11.1); MONO % 9.8 % (3.8-10.2); NEUT % 62.6 % (42.8-82.8); PLATELET COUNT 160 10^3/uL (134-434); RBC 4.44 M/mm3 (4.00-5.60); RDW 16.6 % (11.9-15.9)
[2022-03-20] MEDS: LISINOPRIL 10 MG TABLET PO SCH (09:20)
[2022-03-20] MEDS: APIXABAN 5 MG TABLET PO SCH ×2 (09:20→21:38)
[2022-03-20] MEDS: ASPIRIN 81 MG CHEWABLE TABLETS PO SCH (09:20)
[2022-03-20 09:36] LABS: ALBUMIN 3.4 g/dl (3.4-5.0); CALCIUM 8.9 mg/dL (8.5-10.1)
[2022-03-20 09:37] LABS: BLOOD UREA NITROGEN 37.2 mg/dL (7-18)
[2022-03-20 09:39] LABS: CREATININE 1.2 mg/dL (0.55-1.3)
[2022-03-20 09:41] LABS: BILIRUBIN,TOTAL 0.6 mg/dL (0.2-1); TOT PROT 6.8 g/dl (6.4-8.2)
[2022-03-20] MEDS: ATORVASTATIN CA 40 MG TABLET (FP) PO SCH (21:38)
[2022-03-21] MEDS ORDERED: PIPERACILLIN/TAZOBACTAM 3.375 GM VIAL IVPB ONE ×3 (01:16→16:04)
[2022-03-21] MEDS ORDERED: DEXTROSE 5%-WATER - 50 ML IVPB ONE ×3 (01:17→16:04)
[2022-03-21] MEDS: PIPERACILLIN/TAZOB 3.375 GM 3.375 GM in DEXTROSE 5%-WATER - 50 ML IVPB SCH ×3 (02:01→17:06)
[2022-03-21] MEDS: ASPIRIN 81 MG CHEWABLE TABLETS PO SCH (10:16)
[2022-03-21] MEDS: APIXABAN 5 MG TABLET PO SCH ×2 (10:16→21:47)
[2022-03-21] MEDS: LISINOPRIL 10 MG TABLET PO SCH (10:16)
[2022-03-21] MEDS: ATORVASTATIN CA 40 MG TABLET (FP) PO SCH (21:47)
[2022-03-22 05:58] VITALS: TEMP 97.9
[2022-03-22 09:19] VITALS: BP 127/51; PULSE 61
[2022-03-22] MEDS: LISINOPRIL 10 MG TABLET PO SCH (10:07)
[2022-03-22] MEDS: ASPIRIN 81 MG CHEWABLE TABLETS PO SCH (10:08)
[2022-03-22] MEDS: APIXABAN 5 MG TABLET PO SCH (10:08)
== END 2022-03-22 13:17 | disposition home or self-care (01) | DRG 300 ==
LOC: JER 10:58 → JERBED 15:06 → J5S 03-16 00:31 → OBSVTOIN 03-17 11:25 → J5S 03-19 17:11
PROVIDERS: ADMIT Internal Medicine
DX: I73.9 Peripheral vascular disease, unspecified (principal); L97.329 Non-pressure chronic ulcer of left ankle with unspecified severity; L03.116 Cellulitis of left lower limb; J44.9 Chronic obstructive pulmonary disease, unspecified; I25.10 Atherosclerotic heart disease of native coronary artery without angina pectoris; E78.5 Hyperlipidemia, unspecified; I12.9 Hypertensive chronic kidney disease with stage 1 through stage 4 chronic kidney disease, or unspecified chronic kidney disease; N18.9 Chronic kidney disease, unspecified; B35.1 Tinea unguium; Z85.51 Personal history of malignant neoplasm of bladder; B96.4 Proteus (mirabilis) (morganii) as the cause of diseases classified elsewhere
CPT/HCPCS: 0241U-QW; 36415; 73610-TC-LT-FY; 73630-TC-LT; 73721-LT-TC; 75635-TC; 80053; 82962; 85025; 85610; 85651; 85730; 86140; 86850; 86900; 86901; 87070; 87186; 87205; 93005; 93010; 93970-TC; 97116-GP; 97162-GP; 99285-25; G0378; Q9967

== ENCOUNTER 2024-11-14 12:55 | Observation (INO) | payer OTHER ==
[2024-11-14 14:33] LABS: BASO % 0.7 % (0-2.0); EOS % 5.5 % (0-4.5); HEMATOCRIT 31.6 % (35.4-49); HEMOGLOBIN 10.2 GM/dL (11.7-16.9); LYMPH % 25.9 % (8-40); MCH 25.8 pg (25.7-33.7); MCHC 32.4 g/dl (32.0-35.9); MEAN CELL VOLUME 79.7 fl (80-96); MEAN PLT VOLUME 8.1 fl (7.5-11.1); MONO % 9.9 % (3.8-10.2); PLATELET COUNT 170 10^3/uL (134-434); RBC 3.97 M/mm3 (4.00-5.60); WHITE BLOOD COUNT 4.2 K/mm3 (4.0-10.0)
[2024-11-14 14:50] LABS: CHLORIDE 110 mmol/L (98-107); SODIUM 137 mmol/L (136-145)
[2024-11-14 14:51] LABS: CALCIUM 8.5 mg/dL (8.5-10.1)
[2024-11-14 14:52] LABS: ALBUMIN 3.2 g/dl (3.4-5.0); BLOOD UREA NITROGEN 27.9 mg/dL (7-18); CO2 26 mmol/L (21-32); GLUCOSE,RANDOM 89 mg/dL (74-106); INR 1.15 (0.83-1.09); PROTHROMBIN TIME (PATIENT) 12.5 SEC (9.7-13.0)
[2024-11-14 14:53] LABS: ANION GAP 2 mmol/L (4-13); POTASSIUM 8.1 mmol/L (3.5-5.1)
[2024-11-14 14:54] LABS: ACTIVATED PTT 21.3 SECONDS (25.2-36.5)
[2024-11-14 14:55] LABS: CREATININE 1.4 mg/dL (0.55-1.3); SGOT/AST 79 U/L (15-37); SGPT/ALT 23 U/L (13-61)
[2024-11-14 14:57] LABS: BILIRUBIN,TOTAL 0.4 mg/dL (0.2-1); TOT PROT 6.8 g/dl (6.4-8.2)
[2024-11-14 14:58] LABS: ALK PHOS 112 U/L (45-117)
[2024-11-14 15:52] LABS: ANISOCYTOSIS 1+; MACROCYTOSIS 0; OVALOCYTE 1+
[2024-11-14] MEDS ORDERED: ACETAMINOPHEN 325 MG TABLET (FP) PO PRN (17:00)
[2024-11-14] MEDS ORDERED: MORPHINE SULFATE 2 MG/ML SYRINGE IVPUSH PRN (17:00)
[2024-11-14 17:39] VITALS: BMI 28.0
[2024-11-14] MEDS ORDERED: ALBUTEROL SO4 2.5/IPRATROPIUM 0.5 INH SOL 3 ML VIAL.NEB. NEB ONE (17:55)
[2024-11-14] MEDS: ATORVASTATIN CA 40 MG TABLET (FP) PO SCH (21:50)
[2024-11-14] MEDS: ENOXAPARIN NA (PORCINE) 80 MG/0.8 ML DISP.SYRIN SQ SCH (21:50)
[2024-11-14] MEDS ORDERED: APIXABAN 5 MG TABLET PO SCH (22:00)
[2024-11-15 08:55] VITALS: BP 123/50; PULSE 71; RESP 19; TEMP 98.8
[2024-11-15] MEDS: LISINOPRIL 20 MG TABLET PO SCH (09:07)
[2024-11-15 09:59] LABS: BASO % 1.5 % (0-2.0); EOS % 4.5 % (0-4.5); HEMATOCRIT 31.8 % (35.4-49); HEMOGLOBIN 10.1 GM/dL (11.7-16.9); LYMPH % 20.5 % (8-40); MCH 25.7 pg (25.7-33.7); MCHC 31.9 g/dl (32.0-35.9); MEAN CELL VOLUME 80.6 fl (80-96); MEAN PLT VOLUME 8.2 fl (7.5-11.1); MONO % 7.1 % (3.8-10.2); NEUT % 66.4 % (42.8-82.8); PLATELET COUNT 168 10^3/uL (134-434); RBC 3.95 M/mm3 (4.00-5.60); RDW 20.2 % (11.9-15.9); WHITE BLOOD COUNT 4.1 K/mm3 (4.0-10.0)
[2024-11-15 10:44] LABS: ALBUMIN 3.1 g/dl (3.4-5.0)
[2024-11-15 10:45] LABS: BLOOD UREA NITROGEN 26.4 mg/dL (7-18); CALCIUM 8.7 mg/dL (8.5-10.1); MAGNESIUM 2.1 mg/dL (1.8-2.4)
[2024-11-15 10:47] LABS: PHOSPHOROUS 3.3 mg/dL (2.5-4.9)
[2024-11-15 10:48] LABS: CREATININE 1.3 mg/dL (0.55-1.3)
[2024-11-15 10:49] LABS: BILIRUBIN,TOTAL 0.5 mg/dL (0.2-1); TOT PROT 6.2 g/dl (6.4-8.2)
== END 2024-11-15 12:06 | disposition home or self-care (01) ==
LOC: JER 12:55 → UNDOADMOB 14:32 → JERBED 14:32 → INTOOBSV 14:32 → J5S 17:18 → JERBED 17:18 → J5S 11-15 09:34 → JERBED 11-15 09:34
PROVIDERS: ADMIT Internal Medicine
PROC: 3E023GC Introduction of Other Therapeutic Substance into Muscle, Percutaneous Approach (ICD-10-PCS; principal; 2024-11-15)
DX: I73.9 Peripheral vascular disease, unspecified (principal); R23.8 Other skin changes; M79.675 Pain in left toe(s); J44.9 Chronic obstructive pulmonary disease, unspecified; Z85.46 Personal history of malignant neoplasm of prostate; Z87.891 Personal history of nicotine dependence
CPT/HCPCS: 36415; 80053; 83735; 84100; 84132; 85025; 85610; 85730; 86850; 86900; 86901; 93005; 93010; 96372; 99285-25; G0378

== ENCOUNTER 2024-12-01 11:44 | Inpatient (IN) | payer OTHER ==
[2024-12-01] MEDS: morphine CARPU-JECT 2 MG/1 ML DISP.SYRIN IVPUSH ONE (12:56)
[2024-12-01 13:21] LABS: EOS % 3.7 % (0-4.5); HEMATOCRIT 31.7 % (35.4-49); HEMOGLOBIN 10.4 GM/dL (11.7-16.9); LYMPH % 18.1 % (8-40); MCH 26.3 pg (25.7-33.7); MCHC 32.7 g/dl (32.0-35.9); MEAN CELL VOLUME 80.3 fl (80-96); MEAN PLT VOLUME 8.6 fl (7.5-11.1); MONO % 11.3 % (3.8-10.2); NEUT % 65.9 % (42.8-82.8); PLATELET COUNT 179 10^3/uL (134-434); RBC 3.95 M/mm3 (4.00-5.60); WHITE BLOOD COUNT 5.2 K/mm3 (4.0-10.0)
[2024-12-01 13:30] LABS: INR 1.33 (0.83-1.09); PROTHROMBIN TIME (PATIENT) 14.6 SEC (9.7-13.0)
[2024-12-01 13:40] LABS: POTASSIUM 4.6 mmol/L (3.5-5.1)
[2024-12-01 13:45] LABS: ALBUMIN 3.5 g/dl (3.4-5.0); BLOOD UREA NITROGEN 34.6 mg/dL (7-18)
[2024-12-01 13:48] LABS: CREATININE 1.6 mg/dL (0.55-1.3)
[2024-12-01 13:50] LABS: BILIRUBIN,TOTAL 0.4 mg/dL (0.2-1); TOT PROT 6.8 g/dl (6.4-8.2)
[2024-12-01] MEDS: SODIUM CHLORIDE 500 ML IV STA (17:55)
[2024-12-01] MEDS: SODIUM CHLORIDE 1,000 ML IV SCH (20:26)
[2024-12-01] MEDS ORDERED: ATORVASTATIN CA 40 MG TABLET (FP) ONE (22:15)
[2024-12-01] MEDS: ATORVASTATIN CA 40 MG TABLET (FP) PO SCH (22:20)
[2024-12-01 23:41] VITALS: BMI 26.9
[2024-12-02 08:25] LABS: HEMATOCRIT 31.7 % (35.4-49); HEMOGLOBIN 10.3 GM/dL (11.7-16.9); MCH 26.3 pg (25.7-33.7); MCHC 32.5 g/dl (32.0-35.9); MEAN CELL VOLUME 80.8 fl (80-96); MEAN PLT VOLUME 8.4 fl (7.5-11.1); PLATELET COUNT 170 10^3/uL (134-434); RBC 3.93 M/mm3 (4.00-5.60); RDW 19.2 % (11.9-15.9); WHITE BLOOD COUNT 5.4 K/mm3 (4.0-10.0)
[2024-12-02 08:41] LABS: POTASSIUM 4.2 mmol/L (3.5-5.1)
[2024-12-02 08:45] LABS: BLOOD UREA NITROGEN 26.7 mg/dL (7-18); MAGNESIUM 2.2 mg/dL (1.8-2.4)
[2024-12-02 08:48] LABS: CALCIUM 8.8 mg/dL (8.5-10.1); CREATININE 1.3 mg/dL (0.55-1.3)
[2024-12-02] MEDS: LISINOPRIL 20 MG TABLET PO SCH (10:46)
[2024-12-02] MEDS ORDERED: ALBUTEROL SO4 2.5/IPRATROPIUM 0.5 INH SOL 3 ML VIAL.NEB. NEB PRN (14:51)
[2024-12-02] MEDS: ENOXAPARIN NA (PORCINE) 40 MG/0.4 ML DISP.SYRIN SQ SCH (15:04)
[2024-12-03 08:36] LABS: BASO % 0.9 % (0-2.0); EOS % 4.7 % (0-4.5); HEMATOCRIT 32.6 % (35.4-49); HEMOGLOBIN 10.8 GM/dL (11.7-16.9); INR 1.13 (0.83-1.09); LYMPH % 21.3 % (8-40); MCH 26.6 pg (25.7-33.7); MCHC 33.2 g/dl (32.0-35.9); MEAN PLT VOLUME 8.5 fl (7.5-11.1); MONO % 13.7 % (3.8-10.2); NEUT % 59.4 % (42.8-82.8); PLATELET COUNT 164 10^3/uL (134-434); PROTHROMBIN TIME (PATIENT) 12.4 SEC (9.7-13.0); RBC 4.07 M/mm3 (4.00-5.60); WHITE BLOOD COUNT 4.6 K/mm3 (4.0-10.0)
[2024-12-03 08:57] LABS: POTASSIUM 4.2 mmol/L (3.5-5.1)
[2024-12-03 09:14] LABS: ALBUMIN 3.2 g/dl (3.4-5.0)
[2024-12-03 09:17] LABS: CREATININE 1.3 mg/dL (0.55-1.3); PHOSPHOROUS 3.5 mg/dL (2.5-4.9)
[2024-12-03 09:18] LABS: BILIRUBIN,TOTAL 0.4 mg/dL (0.2-1); CALCIUM 8.6 mg/dL (8.5-10.1); MAGNESIUM 2.2 mg/dL (1.8-2.4); TOT PROT 6.4 g/dl (6.4-8.2)
[2024-12-03] MEDS: ACETAMINOPHEN 325 MG TABLET (FP) PO PRN (09:35)
[2024-12-03] MEDS: SODIUM CHLORIDE 1,000 ML IV SCH (21:01)
[2024-12-04 08:44] LABS: BASO % 1.5 % (0-2.0); EOS % 4.6 % (0-4.5); HEMATOCRIT 32.6 % (35.4-49); HEMOGLOBIN 10.3 GM/dL (11.7-16.9); LYMPH % 20.6 % (8-40); MCH 25.8 pg (25.7-33.7); MCHC 31.7 g/dl (32.0-35.9); MEAN CELL VOLUME 81.3 fl (80-96); MEAN PLT VOLUME 8.2 fl (7.5-11.1); MONO % 11.8 % (3.8-10.2); NEUT % 61.5 % (42.8-82.8); PLATELET COUNT 176 10^3/uL (134-434); RDW 19.5 % (11.9-15.9); WHITE BLOOD COUNT 4.9 K/mm3 (4.0-10.0)
[2024-12-04 08:53] LABS: INR 1.16 (0.83-1.09); PROTHROMBIN TIME (PATIENT) 12.6 SEC (9.7-13.0)
[2024-12-04 09:10] LABS: POTASSIUM 4.2 mmol/L (3.5-5.1)
[2024-12-04 09:34] LABS: CALCIUM 8.7 mg/dL (8.5-10.1)
[2024-12-04 09:35] LABS: ALBUMIN 3.2 g/dl (3.4-5.0); BLOOD UREA NITROGEN 27.5 mg/dL (7-18); MAGNESIUM 2.1 mg/dL (1.8-2.4)
[2024-12-04 09:38] LABS: CREATININE 1.3 mg/dL (0.55-1.3)
[2024-12-04 09:39] LABS: BILIRUBIN,TOTAL 0.5 mg/dL (0.2-1); TOT PROT 6.4 g/dl (6.4-8.2)
[2024-12-04] MEDS ORDERED: oxyCODONE HCL 5 MG TABLET PO PRN (15:36)
[2024-12-04] MEDS ORDERED: ONDANSETRON 4 MG/2 ML VIAL IVPUSH PRN ×2 (15:36→18:39)
[2024-12-04] MEDS ORDERED: BUPIVACAINE HCL/PF 0.5% (5MG/ML) 10 ML VIAL ONE (15:43)
[2024-12-04] MEDS ORDERED: ACETAMINOPHEN INJECTION 100 ML ONE (15:43)
[2024-12-04] MEDS ORDERED: PROPOFOL 20 ML ONE (15:45)
[2024-12-04] MEDS ORDERED: MIDAZOLAM HCL 2 MG/2 ML SINGLE DOSE VIAL ONE (16:34)
[2024-12-04] MEDS: ceFAZolin SODIUM 1 GM VIAL IVPB ONE (16:50)
[2024-12-04] MEDS ORDERED: ONDANSETRON 4 MG/2 ML VIAL ONE (17:50)
[2024-12-04] MEDS ORDERED: ALBUTEROL SO4 2.5/IPRATROPIUM 0.5 INH SOL 3 ML VIAL.NEB. NEB PRN (18:39)
[2024-12-04] MEDS: SODIUM CHLORIDE 1,000 ML IV SCH (19:00)
[2024-12-04] MEDS: ATORVASTATIN CA 40 MG TABLET (FP) PO SCH (21:19)
[2024-12-04] MEDS: oxyCODONE HCL 5 MG TABLET PO PRN (23:16)
[2024-12-05 08:48] LABS: BASO % 0.9 % (0-2.0); EOS % 3.2 % (0-4.5); HEMATOCRIT 29.1 % (35.4-49); HEMOGLOBIN 9.4 GM/dL (11.7-16.9); LYMPH % 13.5 % (8-40); MCH 26.3 pg (25.7-33.7); MCHC 32.4 g/dl (32.0-35.9); MEAN CELL VOLUME 81.1 fl (80-96); MEAN PLT VOLUME 8.4 fl (7.5-11.1); MONO % 9.3 % (3.8-10.2); NEUT % 73.1 % (42.8-82.8); PLATELET COUNT 174 10^3/uL (134-434); RBC 3.59 M/mm3 (4.00-5.60); RDW 18.5 % (11.9-15.9); WHITE BLOOD COUNT 6.3 K/mm3 (4.0-10.0)
[2024-12-05 08:52] LABS: INR 1.19 (0.83-1.09); PROTHROMBIN TIME (PATIENT) 13.1 SEC (9.7-13.0)
[2024-12-05 09:14] LABS: POTASSIUM 4.2 mmol/L (3.5-5.1)
[2024-12-05 09:19] LABS: ALBUMIN 3.1 g/dl (3.4-5.0); BLOOD UREA NITROGEN 24.6 mg/dL (7-18); CALCIUM 8.5 mg/dL (8.5-10.1)
[2024-12-05 09:22] LABS: CREATININE 1.3 mg/dL (0.55-1.3)
[2024-12-05 09:24] LABS: BILIRUBIN,TOTAL 0.5 mg/dL (0.2-1); TOT PROT 6.2 g/dl (6.4-8.2)
[2024-12-05] MEDS: LISINOPRIL 20 MG TABLET PO SCH (10:16)
[2024-12-05] MEDS: ENOXAPARIN NA (PORCINE) 40 MG/0.4 ML DISP.SYRIN SQ SCH (10:16)
[2024-12-05] MEDS: LACTATED RINGERS SOLUTION 1,000 ML IV SCH ×2 (12:50)
[2024-12-05] MEDS: ACETAMINOPHEN 325 MG TABLET (FP) PO PRN (19:36)
[2024-12-06] MEDS ORDERED: ACETAMINOPHEN 1000 MG/100 ML BAG IVPB PRN (12:09)
[2024-12-07 06:23] VITALS: RESP 18; TEMP 98.1
[2024-12-07 13:30] VITALS: BP 160/76; PULSE 82
== END 2024-12-07 17:01 | DRG 241 ==
LOC: JER 11:44 → JERBED 17:48 → J8W 23:29
PROVIDERS: ADMIT Internal Medicine; ATTEND Nurse Practitioner Acute Care
PROC: 0Y6J0Z1 Detachment at Left Lower Leg, High, Open Approach (ICD-10-PCS; principal; 2024-12-04 15:30)
DX: I70.243 Atherosclerosis of native arteries of left leg with ulceration of ankle (principal); J44.9 Chronic obstructive pulmonary disease, unspecified; I25.10 Atherosclerotic heart disease of native coronary artery without angina pectoris; I10 Essential (primary) hypertension; F17.200 Nicotine dependence, unspecified, uncomplicated; E78.5 Hyperlipidemia, unspecified; Z85.46 Personal history of malignant neoplasm of prostate; Z89.519 Acquired absence of unspecified leg below knee
CPT/HCPCS: 36415; 71046-TC-FY; 80048; 80053; 83036; 83735; 84100; 85025; 85027; 85610; 85730; 86850; 86900; 86901; 86922; 87635; 88307-TC; 88311-TC; 93005; 93010; 93306-TC; 94760; 97116-GP; 97161-GP; 99285-25; J0131

== ENCOUNTER 2025-01-18 16:33 | Inpatient (IN) | payer OTHER, MEDICARE ==
[2025-01-18 16:40] VITALS: BMI 24.3
[2025-01-18] MEDS ORDERED: PIPERACILLIN/TAZOB 4.5 GM 4.5 GM/100 ML BAG IVPB ONE (18:20)
[2025-01-18] MEDS: PIPERACILLIN/TAZOBACTAM 4.5 GM VIAL IVPB ONE (18:45)
[2025-01-18 19:17] LABS: ABSOLUTE IMMATURE GRANULOCYTES 0.02 x10^3/uL (0.0-0.031); BASOPHILS # 0.06 x10^3/uL (0.01-0.08); EOSINOPHILS # 0.32 x10^3/uL (0.04-0.54); HEMATOCRIT 34.1 % (40.1-51.0); HEMOGLOBIN 10.4 g/dL (13.7-17.5); MCHC 30.5 g/dl (32.3-36.5); MEAN CELL VOLUME 87.4 fl (79.0-92.2); MEAN PLT VOLUME 10.7 fl (9.4-12.4); MONOCYTE # 0.44 x10^3/uL (0.30-0.82); MONOCYTE % 8.3 % (5.3-12.2); PLATELET COUNT 331 x10^3/uL (163-337); RDW 15.9 % (12.6-16.6)
[2025-01-18 19:34] LABS: INR 1.1 (0.83-1.09)
[2025-01-18 19:36] LABS: ACTIVATED PTT 27.6 SECONDS (25.2-36.5)
[2025-01-18 19:37] LABS: POTASSIUM 4.5 mmol/L (3.5-5.1)
[2025-01-18] MEDS ORDERED: VANCOMYCIN/WATER 1250 MG 1,250 MG/250 ML BAG IVPB ONE (19:40)
[2025-01-18 19:41] LABS: BLOOD UREA NITROGEN 36.6 mg/dL (7-18); CALCIUM 9.3 mg/dL (8.5-10.1)
[2025-01-18 19:44] LABS: CREATININE 1.5 mg/dL (0.55-1.3)
[2025-01-18 19:46] LABS: BILIRUBIN,TOTAL 0.3 mg/dL (0.2-1); TOT PROT 6.6 g/dl (6.4-8.2)
[2025-01-18] MEDS: VANCOMYCIN 1,250 MG in DEXTROSE 5%-WATER - 500 ML IVPB ONE (19:49)
[2025-01-18] MEDS ORDERED: ALBUTEROL SO4 2.5/IPRATROPIUM 0.5 INH SOL 3 ML VIAL.NEB. NEB PRN (22:14)
[2025-01-18] MEDS: ENOXAPARIN NA (PORCINE) 40 MG/0.4 ML DISP.SYRIN SQ ONE (22:50)
[2025-01-18] MEDS ORDERED: ACETAMINOPHEN 325 MG TABLET (FP) PO PRN (23:31)
[2025-01-18] MEDS: SODIUM CHLORIDE 1,000 ML IV SCH (23:55)
[2025-01-19] MEDS ORDERED: ACETAMINOPHEN 325 MG TABLET (FP) PO PRN (02:20)
[2025-01-19] MEDS: PIPERACILLIN/TAZOB 2.25 GM 2.25 GM in DEXTROSE 5%-WATER - 50 ML IVPB SCH (03:13)
[2025-01-19] MEDS ORDERED: PIPERACILLIN/TAZOB 2.25 GM 2.25 GM in DEXTROSE 5%-WATER - 50 ML IVPB SCH (06:00)
[2025-01-19] MEDS ORDERED: VANCOMYCIN 1 GM PREMIX (F) 1 GM/200 ML BAG IVPB SCH (08:00)
[2025-01-19 08:36] LABS: ABSOLUTE IMMATURE GRANULOCYTES 0.01 x10^3/uL (0.0-0.031); BASOPHILS # 0.05 x10^3/uL (0.01-0.08); EOSINOPHILS # 0.33 x10^3/uL (0.04-0.54); HEMATOCRIT 31.2 % (40.1-51.0); HEMOGLOBIN 9.3 g/dL (13.7-17.5); MCHC 29.8 g/dl (32.3-36.5); MEAN CELL VOLUME 86.7 fl (79.0-92.2); MEAN PLT VOLUME 10.1 fl (9.4-12.4); MONOCYTE # 0.43 x10^3/uL (0.30-0.82); MONOCYTE % 10.5 % (5.3-12.2); PLATELET COUNT 268 x10^3/uL (163-337); RDW 15.8 % (12.6-16.6)
[2025-01-19 08:40] LABS: INR 1.09 (0.83-1.09)
[2025-01-19] MEDS: VANCOMYCIN 1 GM PREMIX (F) 1 GM/200 ML BAG IVPB SCH (08:50)
[2025-01-19 09:03] LABS: POTASSIUM 3.9 mmol/L (3.5-5.1)
[2025-01-19 09:15] LABS: ALBUMIN 2.7 g/dl (3.4-5.0); BLOOD UREA NITROGEN 29.6 mg/dL (7-18); CALCIUM 9.1 mg/dL (8.5-10.1); MAGNESIUM 2.2 mg/dL (1.8-2.4)
[2025-01-19] MEDS: METOPROLOL TARTRATE 25 MG TABLET (FP) PO SCH ×2 (09:16→21:20)
[2025-01-19] MEDS: PANTOPRAZOLE 40 MG TABLET PO SCH ×2 (09:16→21:20)
[2025-01-19 09:18] LABS: PHOSPHOROUS 3.4 mg/dL (2.5-4.9)
[2025-01-19 09:19] LABS: CREATININE 1.3 mg/dL (0.55-1.3)
[2025-01-19 09:22] LABS: BILIRUBIN,TOTAL 0.2 mg/dL (0.2-1)
[2025-01-19] MEDS: AMIODARONE HCL 200 MG TABLET PO SCH (09:22)
[2025-01-19] MEDS ORDERED: FUROSEMIDE 40 MG TABLET (FP) PO SCH (10:00)
[2025-01-19] MEDS ORDERED: PROPOFOL 20 ML ONE (15:35)
[2025-01-19] MEDS ORDERED: LIDOCAINE HCL/PF 2% SDV 5ML VIAL ONE (15:35)
[2025-01-19] MEDS ORDERED: MIDAZOLAM HCL 2 MG/2 ML SINGLE DOSE VIAL ONE (15:36)
[2025-01-19] MEDS ORDERED: SUCCINYLCHOLINE CHLORIDE 200 MG/10 ML SYRINGE ONE (15:36)
[2025-01-19] MEDS ORDERED: PIPERACILLIN/TAZOBACTAM 3.375 GM VIAL IVPB ONE (17:22)
[2025-01-19] MEDS ORDERED: ONDANSETRON 4 MG/2 ML VIAL ONE (17:30)
[2025-01-19] MEDS ORDERED: DEXAMETHASONE SOD PHOSPHATE 4 MG/1 ML VIAL ONE (17:30)
[2025-01-19] MEDS ORDERED: oxyCODONE HCL 5 MG TABLET PO PRN (17:39)
[2025-01-19] MEDS ORDERED: ONDANSETRON 4 MG/2 ML VIAL IVPUSH PRN ×2 (17:39→18:45)
[2025-01-19] MEDS ORDERED: LACTATED RINGERS SOLUTION 1,000 ML IV SCH ×2 (17:45→18:45)
[2025-01-19] MEDS ORDERED: PIPERACILLIN/TAZOB 3.375 GM 50 ML IVPB SCH (18:00)
[2025-01-19] MEDS ORDERED: ALBUTEROL SO4 2.5/IPRATROPIUM 0.5 INH SOL 3 ML VIAL.NEB. NEB PRN (18:45)
[2025-01-19] MEDS: SODIUM CHLORIDE 1,000 ML IV SCH (19:31)
[2025-01-20] MEDS: PIPERACILLIN/TAZOB 3.375 GM 3.375 GM in DEXTROSE 5%-WATER - 50 ML IVPB SCH (01:04)
[2025-01-20] MEDS: AMIODARONE HCL 200 MG TABLET PO SCH (09:47)
[2025-01-20 10:04] LABS: HEMATOCRIT 33.4 % (40.1-51.0); HEMOGLOBIN 9.8 g/dL (13.7-17.5); MCHC 29.3 g/dl (32.3-36.5); MEAN CELL VOLUME 88.1 fl (79.0-92.2); MEAN PLT VOLUME 10.6 fl (9.4-12.4); PLATELET COUNT 324 x10^3/uL (163-337); RDW 15.5 % (12.6-16.6)
[2025-01-20 10:22] LABS: POTASSIUM 4.7 mmol/L (3.5-5.1)
[2025-01-20 10:46] LABS: CALCIUM 9.3 mg/dL (8.5-10.1)
[2025-01-20 10:47] LABS: BLOOD UREA NITROGEN 27.3 mg/dL (7-18)
[2025-01-20 10:50] LABS: CREATININE 1.4 mg/dL (0.55-1.3)
[2025-01-21 09:09] LABS: ABSOLUTE IMMATURE GRANULOCYTES 0.02 x10^3/uL (0.0-0.031); BASOPHILS # 0.04 x10^3/uL (0.01-0.08); EOSINOPHIL % 5.4 % (0.8-7.0); EOSINOPHILS # 0.27 x10^3/uL (0.04-0.54); HEMOGLOBIN 9.6 g/dL (13.7-17.5); MCHC 29.1 g/dl (32.3-36.5); MEAN PLT VOLUME 10.3 fl (9.4-12.4); MONOCYTE # 0.47 x10^3/uL (0.30-0.82); MONOCYTE % 9.3 % (5.3-12.2); PLATELET COUNT 265 x10^3/uL (163-337); RDW 15.9 % (12.6-16.6)
[2025-01-21 09:31] LABS: POTASSIUM 4.4 mmol/L (3.5-5.1)
[2025-01-21 10:15] LABS: ALBUMIN 2.8 g/dl (3.4-5.0); BLOOD UREA NITROGEN 24.8 mg/dL (7-18); CALCIUM 9.6 mg/dL (8.5-10.1)
[2025-01-21 10:18] LABS: CREATININE 1.3 mg/dL (0.55-1.3)
[2025-01-21 10:20] LABS: BILIRUBIN,TOTAL 0.2 mg/dL (0.2-1); TOT PROT 6.2 g/dl (6.4-8.2)
[2025-01-21] MEDS: IRON SUCROSE INJECTION 200 MG in SODIUM CHLORIDE 100 ML IVPB ONE (14:55)
[2025-01-21] MEDS: SENNOSIDES 8.6MG TABLET (FP) PO PRN (19:59)
[2025-01-22] MEDS: POLYETHYLENE GLYCOL (HEALTHYLAX) 3350 17 GM PACKET PO SCH (10:39)
[2025-01-22] MEDS: ACETAMINOPHEN 325 MG TABLET (FP) PO PRN (21:47)
[2025-01-23] MEDS: IRON SUCROSE INJECTION 200 MG in SODIUM CHLORIDE 100 ML IVPB ONE (09:32)
[2025-01-23] MEDS: oxyCODONE HCL 5 MG TABLET PO PRN ×2 (09:35→19:38)
[2025-01-23] MEDS ORDERED: PHENYLEPHRINE HCL 10 MG/1 ML SINGLE DOSE VIAL ONE (12:50)
[2025-01-23] MEDS ORDERED: LIDOCAINE HCL 2% 100 MG/5 ML DISP.SYRIN ONE (12:50)
[2025-01-23] MEDS ORDERED: PROPOFOL 20 ML ONE (12:51)
[2025-01-23] MEDS ORDERED: ROCURONIUM BROMIDE 50 MG/5 ML SYRINGE ONE (12:51)
[2025-01-23 12:55] LABS: HEMATOCRIT 32.9 % (40.1-51.0); HEMOGLOBIN 9.8 g/dL (13.7-17.5); MCHC 29.8 g/dl (32.3-36.5); MEAN CELL VOLUME 87.3 fl (79.0-92.2); MEAN PLT VOLUME 10.4 fl (9.4-12.4); PLATELET COUNT 292 x10^3/uL (163-337); RDW 15.9 % (12.6-16.6)
[2025-01-23] MEDS ORDERED: ACETAMINOPHEN INJECTION 100 ML ONE (12:55)
[2025-01-23 13:11] LABS: INR 1.15 (0.83-1.09); PROTHROMBIN TIME (PATIENT) 12.6 SEC (9.7-13.0)
[2025-01-23 13:13] LABS: ACTIVATED PTT 30.7 SECONDS (25.2-36.5)
[2025-01-23] MEDS ORDERED: LABETALOL HCL 20 MG/4 ML VIAL ONE (13:20)
[2025-01-23] MEDS ORDERED: MIDAZOLAM HCL 2 MG/2 ML SINGLE DOSE VIAL ONE (13:21)
[2025-01-23 13:26] LABS: POTASSIUM 4.4 mmol/L (3.5-5.1)
[2025-01-23 13:28] LABS: BLOOD UREA NITROGEN 22.3 mg/dL (7-18); CALCIUM 9.5 mg/dL (8.5-10.1)
[2025-01-23 13:31] LABS: CREATININE 1.3 mg/dL (0.55-1.3)
[2025-01-23] MEDS ORDERED: ONDANSETRON 4 MG/2 ML VIAL IVPUSH PRN ×2 (13:52→14:49)
[2025-01-23] MEDS ORDERED: HYDROmorphone HCL CARPU-JECT 2 MG/1 ML DISP.SYRIN IVPUSH PRN ×3 (13:53→14:49)
[2025-01-23] MEDS ORDERED: LACTATED RINGERS SOLUTION 1,000 ML IV SCH (14:00)
[2025-01-23] MEDS ORDERED: SUGAMMADEX SODIUM 200 MG/2 ML VIAL ONE (14:13)
[2025-01-23] MEDS ORDERED: ONDANSETRON 4 MG/2 ML VIAL ONE (14:13)
[2025-01-23] MEDS ORDERED: ALBUTEROL SO4 2.5/IPRATROPIUM 0.5 INH SOL 3 ML VIAL.NEB. NEB PRN (14:49)
[2025-01-23] MEDS ORDERED: SENNOSIDES 8.6MG TABLET (FP) PO PRN (14:49)
[2025-01-23] MEDS: LACTATED RINGERS SOLUTION 1,000 ML IV SCH (16:40)
[2025-01-23] MEDS: PIPERACILLIN/TAZOB 3.375 GM 3.375 GM in DEXTROSE 5%-WATER - 50 ML IVPB SCH (17:44)
[2025-01-23] MEDS: PANTOPRAZOLE 40 MG TABLET PO SCH (21:27)
[2025-01-23] MEDS: ACETAMINOPHEN 325 MG TABLET (FP) PO PRN (21:28)
[2025-01-23] MEDS: METOPROLOL TARTRATE 25 MG TABLET (FP) PO SCH (21:28)
[2025-01-24] MEDS: POLYETHYLENE GLYCOL (HEALTHYLAX) 3350 17 GM PACKET PO SCH (09:34)
[2025-01-24] MEDS: AMIODARONE HCL 200 MG TABLET PO SCH (09:34)
[2025-01-24 10:08] LABS: HEMOGLOBIN 9.5 g/dL (13.7-17.5); MCHC 29.7 g/dl (32.3-36.5); MEAN CELL VOLUME 87.4 fl (79.0-92.2); MEAN PLT VOLUME 10.6 fl (9.4-12.4); PLATELET COUNT 255 x10^3/uL (163-337); RDW 15.8 % (12.6-16.6)
[2025-01-24 10:13] LABS: INR 1.12 (0.83-1.09); PROTHROMBIN TIME (PATIENT) 12.2 SEC (9.7-13.0)
[2025-01-24 11:14] LABS: POTASSIUM 3.9 mmol/L (3.5-5.1)
[2025-01-24 11:20] LABS: ALBUMIN 2.8 g/dl (3.4-5.0)
[2025-01-24 11:21] LABS: BLOOD UREA NITROGEN 18.2 mg/dL (7-18)
[2025-01-24 11:23] LABS: CALCIUM 9.4 mg/dL (8.5-10.1)
[2025-01-24 11:24] LABS: CREATININE 1.2 mg/dL (0.55-1.3)
[2025-01-24 11:25] LABS: BILIRUBIN,TOTAL 0.4 mg/dL (0.2-1); TOT PROT 5.9 g/dl (6.4-8.2)
[2025-01-24] MEDS ORDERED: PIPERACILLIN/TAZOBACTAM 3.375 GM VIAL IVPB ONE (17:27)
[2025-01-24] MEDS: DEXTROSE 50%-WATER 25 GM/50 ML DISP.SYRIN IVPUSH ONE (19:26)
[2025-01-25] MEDS ORDERED: PIPERACILLIN/TAZOBACTAM 3.375 GM VIAL IVPB ONE (01:19)
[2025-01-25 10:39] VITALS: RESP 18
[2025-01-25] MEDS: AMOX TR/POT CLAV 500MG/125MG TABLETS (FP) PO SCH (17:45)
[2025-01-26 14:10] VITALS: BP 154/72; PULSE 63; TEMP 98.2
== END 2025-01-26 14:45 | DRG 464 ==
LOC: JER 16:33 → JERBED 18:29 → J6S 23:43
PROVIDERS: ADMIT Hospitalist; ATTEND Family Medicine
PROC: 0JBP0ZZ Excision of Left Lower Leg Subcutaneous Tissue and Fascia, Open Approach (ICD-10-PCS; 2025-01-19)
PROC: 3E10X8Z Irrigation of Skin and Mucous Membranes using Irrigating Substance (ICD-10-PCS; 2025-01-19)
PROC: 0Y6D0Z3 Detachment at Left Upper Leg, Low, Open Approach (ICD-10-PCS; principal; 2025-01-23 15:00)
DX: T87.81 Dehiscence of amputation stump (principal); I70.268 Atherosclerosis of native arteries of extremities with gangrene, other extremity; T81.49XA Infection following a procedure, other surgical site, initial encounter; E78.5 Hyperlipidemia, unspecified; I10 Essential (primary) hypertension; I25.10 Atherosclerotic heart disease of native coronary artery without angina pectoris; D64.9 Anemia, unspecified; J44.9 Chronic obstructive pulmonary disease, unspecified; B95.7 Other staphylococcus as the cause of diseases classified elsewhere; Y83.8 Other surgical procedures as the cause of abnormal reaction of the patient, or of later complication, without mention of misadventure at the time of the procedure; Z85.46 Personal history of malignant neoplasm of prostate; Z89.512 Acquired absence of left leg below knee
CPT/HCPCS: 36415; 80048; 80053; 82728; 83540; 83550; 83735; 84100; 84466; 85025; 85027; 85610; 85651; 85730; 86140; 86850; 86900; 86901; 86922; 87040; 87070; 87205; 88304-TC; 88307-TC; 88311-TC; 93005; 93010; 94760; 97116-GP; 97162-GP; 99285-25; J0131; J1756